=== PATIENT | male | born 1980 | race Two or more races ===

== ENCOUNTER 2018-07-02 11:07 | Inpatient (IN) | payer OTHER ==
[2018-07-02] MEDS ORDERED: ALBUTEROL SO4 2.5/IPRATROPIUM 0.5 INH SOL 3 ML VIAL.NEB. NEB ONE ×3 (11:33→12:07)
[2018-07-02] MEDS ORDERED: methylPREDNISolone NA SUCC 125 MG/2 ML VIAL IVPB ONE (11:35)
[2018-07-02] MEDS ORDERED: MAGNESIUM SULF 50% (8.12 MEQ/2 ML-1 GM VIAL) IVPB ONE (11:35)
[2018-07-02] MEDS ORDERED: AZITHROMYCIN IVPB 500 MG in DEXTROSE 5%-WATER - 250 ML IVPB ONE (11:41)
[2018-07-02] MEDS ORDERED: CEFTRIAXONE 1 GM in DEXTROSE 5%-WATER - 50 ML IVPB ONE (11:42)
--- NOTE | 2018-07-02 11:42 | PDOC ---
History of Present Illness - General Chief Complaint: Shortness of Breath Stated Complaint: Shortness of Breath Time Seen by Provider: 07/02/18 11:29 History Source: Patient Exam Limitations: No Limitations - History of Present Illness Initial Comments: 07/02/18 11:29 Mr Vazquez is a 37 yo M with a h/o HTN who presents from his PMDs office due to Progressively worsening shortness of breath. Patient apparently began to have upper respiratory symptoms approximately 2 weeks ago. He was seen by his primary care physician on June 28. At that time an x-ray was performed and was reportedly negative. Patient was started on an antibiotic as well as prednisone. Patient reports compliance with both however has noted worsening shortness of breath. He was seen by his primary care physician today who referred him to the emergency department. Patient denies fevers or chills. Patient denies chest pain. Patient denies recent travel, lower extremity edema. Patient denies prior history of asthma. Patient previously used tobacco but discontinued its use approximately one year ago. MH: Hypertension PSH: Denies Medications: ALLERGIES: NKDA Social: Denies tobacco use, denies drug use, denies alcohol use ROS: GENERAL/CONSTITUTIONAL: No: fever, chills, weakness, loss of appetite. HEAD, EYES, EARS, NOSE AND THROAT: No: change in vision, ear pain, discharge, sore throat, throat swelling. CARDIOVASCULAR: No: chest pain, lightheadedness, palpitations, syncope RESPIRATORY: YES: cough, shortness of breath GASTROINTESTINAL: No: nausea, vomiting, diarrhea, abdominal cramping, rectal bleeding, constipation. GENITOURINARY: No: dysuria, hematuria, frequency, urgency, flank pain. MUSCULOSKELETAL: No: back pain, neck pain, joint pain, muscle swelling or pain SKIN AND BREASTS: No: lesions, pallor, rash or easy bruising. NEUROLOGIC: No: headache, vertigo, paresthesias, weakness ENDOCRINE: No: unexplained weight gain or loss HEMATOLOGIC/LYMPHATIC: No: anemia, easy bleeding, swelling nodes. PE: GENERAL: The patient is in no acute distress. HEAD: Normal with no signs of trauma. EYES: PERRLA, EOMI, sclera anicteric, conjunctiva clear. ENT: Ears normal, nares patent, oropharynx clear without exudates. Moist mucous membranes. NECK: Normal range of motion, supple without lymphadenopathy, JVD, or masses. LUNGS: Pt is tachypneic, using accessory muscles, expiratory rhonchi, crackles at bases, no wheezing HEART: Tachycardiac regular, no murmur ABDOMEN: Soft, nontender, normoactive bowel sounds. No guarding, no rebound. No masses palpable. EXTREMITIES: Normal range of motion, no edema. No clubbing or cyanosis. No erythema, or tenderness. NEUROLOGICAL: Cranial nerves II through XII grossly intact. Normal speech. No focal neurological deficits. MUSCULOSKELETAL: Back non-tender to palpation, no CVA tenderness SKIN: Warm, Dry, normal turgor, no rashes or lesions noted. Past History - Past Medical History Allergies/Adverse Reactions: Allergies Allergy/AdvReac Type Severity Reaction Status Date / Time No Known Allergies Allergy Verified 07/02/18 11:29 Home Medications: Ambulatory Orders Amlodipine Besylate [Norvasc -] 5 mg PO DAILY 07/02/18 ED Treatment Course - LABORATORY CBC & Chemistry Diagram: 07/07/18 06:00 07/07/18 06:00 Medical Decision Making - Critical Care Time Total Critical Care Time (minutes): 90 Critical Care Statement: The care of this patient involved high complexity decision making to prevent further life threatening deterioration of the patient 's condition and/or to evaluate & treat vital organ system(s) failure or risk of failure. - Medical Decision Making 07/02/18 11:59 CXR - increased marking, no consoloditation see, no effusionnml cardiomediastinal silhouette EKG - Twelve-lead EKG was performed and reviewed by me. There is normal sinus rhythm with a tachycardiac rate of 101 bpm. The axis is normal. The intervals are normal - pr:146ms, QRS:72ms, QTc: 376ms. There are no ST or T wave abnormalities. 07/02/18 12:03 Pt given Combivent x 2 Sat 89% Will give albuterol Still awaiting respiratory for BiPAP 07/02/18 12:23 Laboratory Tests 07/02/18 11:52 WBC 19.2 H Hgb 15.3 Hct 43.1 Plt Count 357 07/02/18 12:29 BiPAP initiated 07/02/18 12:39 07/02/18 12:40 Laboratory Tests 07/02/18 12:05 Influenza A (Rapid) Negative Influenza B (Rapid) Negative 07/02/18 12:41 Laboratory Tests 07/02/18 11:58 Lactic Acid 1.3 07/02/18 12:51 Laboratory Tests 07/02/18 07/02/18 11:15 12:40 ABG pH 7.43 ABG pCO2 at Pt Temp 38.6 ABG pO2 at Pt Temp 52.9 L BUN 15 Creatinine 1.2 07/02/18 14:[address] Placed on Bipap CT demonstrates LLL pneumonia 07/02/18 14:49 CTA read as neg for PE, LLL atalectasis Ceftriaxone and Azithromycin ordered Admitted to hospitalist Consult to Dr Wiggins per Dr. Muniz 07/02/18 15:[address] Love covering ICU Would like to send patient to Tele Clinical Impression: Pneumonia, initial presentation Bronchospasm, initial presentation Respiratory Distress, initial presentation *DC/Admit/Observation/Transfer Diagnosis at time of Disposition: Reactive airway disease Pneumonia Qualifiers: Pneumonia type: due to unspecified organism Laterality: left Lung location: lower lobe of lung Qualified Code(s): J18.1 - Lobar pneumonia, unspecified organism - Discharge Dispostion Condition at time of disposition: Stable Decision to Admit order: Yes - Referrals - Patient Instructions - Post Discharge Activity
[2018-07-02] MEDS ORDERED: methylPREDNISolone NA SUCC 125 MG/2 ML VIAL ONE (11:53)
[2018-07-02] MEDS ORDERED: MAGNESIUM 1GM/D5W - 2 GM/200 ML IVPB IVPB ONE (11:54)
[2018-07-02] MEDS ORDERED: ALBUTEROL SO4 0.083% IH SOL 2.5 MG/3 ML VIAL.NEB. NEB ONE ×2 (12:03→12:07)
[2018-07-02 12:09] LABS: BASO % 0.7 % (0-2.0); EOS % 0.7 % (0-4.5); HEMATOCRIT 43.1 % (35.4-49); HEMOGLOBIN 15.3 GM/dL (11.7-16.9); LYMPH % 14.9 % (8-40); MCH 30.4 pg (25.7-33.7); MCHC 35.6 g/dl (32.0-35.9); MEAN CELL VOLUME 85.6 fl (80-96); MEAN PLT VOLUME 10.2 fl (7.5-11.1); MONO % 7.7 % (3.8-10.2); PLATELET COUNT 357 K/MM3 (134-434); RBC 5.03 M/mm3 (4.00-5.60); RDW 13.4 % (11.9-15.9); WHITE BLOOD COUNT 19.2 K/mm3 (4.0-10.0)
[2018-07-02] MEDS ORDERED: CEFTRIAXONE 1 GM/50 ML BAG ONE (12:17)
[2018-07-02 12:43] LABS: ARTERIAL BLD GAS O2 SATURATION 85.3 % (90-98.9); ARTERIAL BLOOD GAS BASE EXCESS 1.3 meq/l (-2-2); ARTERIAL BLOOD GAS PCO2 38.6 mmHg (35-45); ARTERIAL BLOOD GAS PO2 52.9 mmHg (80-100); ARTERIAL BLOOD GAS pH 7.43 (7.35-7.45)
[2018-07-02 12:45] LABS: ALBUMIN 3.1 g/dl (3.4-5.0); ALK PHOS 33 U/L (45-117); ANION GAP 10 MMOL/L (8-16); BILIRUBIN,TOTAL 0.6 mg/dL (0.2-1); BLOOD UREA NITROGEN 15 mg/dL (7-18); CALCIUM 8.4 mg/dL (8.5-10.1); CHLORIDE 101 mmol/L (98-107); CO2 29 mmol/L (21-32); CREATININE 1.2 mg/dL (0.55-1.3); GLUCOSE,RANDOM 82 mg/dL (74-106); POTASSIUM 3.9 mmol/L (3.5-5.1); SGOT/AST 31 U/L (15-37); SGPT/ALT 64 U/L (13-61); SODIUM 140 mmol/L (136-145); TOT PROT 7.7 g/dl (6.4-8.2)
[2018-07-02] MEDS ORDERED: AZITHROMYCIN IVPB 500 MG/250 ML BAG IVPB ONE (12:57)
[2018-07-02 13:17] LABS: N-TERMINAL BNP 46.1 pg/ml (5-125)
[2018-07-02 13:48] LABS: INR 1.23 (0.83-1.09); PROTHROMBIN TIME (PATIENT) 14.5 SEC (9.7-13.0)
[2018-07-02] MEDS ORDERED: ALBUTEROL SO4 0.083% IH SOL 2.5 MG/3 ML VIAL.NEB. NEB PRN (14:53)
--- NOTE | 2018-07-02 14:56 | CONSULT ---
Consultation: REQUESTING PROVIDER: CONSULT REQUEST: We have been asked to medically evaluate this patient for ( Respiratory failure). Pulm - critical care HISTORY OF PRESENT ILLNESS: 37 y/o male with PMH of HTN was sent in by his PCP because of increase in shortness of breath and cough. Patient states that he started having productive cough 2 week ago, sputum was yellow in color, took antibiotic Augmentin for 2 week, his cough got better and color of sputum changed from yellow to white. Also reports Shortness of breath which also started about 2week ago with cough and is getting worse, use to get shortness of breath even while walking in home and also unable to eat because of shortness of breath. 4 days ago pt again saw his doctor and was started on prednisone and inhaler but breathing lept on getting worse. Today was sent in by his pcp. Reports sick contact from his colleague 3 week ago. Also reports lightheadedness if he tries to walk. Denies fever and chills, runny nose, chest pain, palpitations, sneezing. Denies swelling in legs, orthopnea and paroxysmal dyspnea. Denies recent travel. NO h/o asthma and copd. No h/o exposure to fumes, dust and gases. Smoked for 6 years ( 3-4 cig a day). Didn't get flu shot In ER pt has minimal air entry with RR of 52, started on BIPAP with fi02 of 100 , got solumedrol, duoneb, azithromycin, ceftriaxone and magnesium. ABG done in ER on neb mask. pt reports feeling little better since he came to hospital. ABG Results ABG pH 7.43 (7.35-7.45) 07/02/18 12:40 ABG pCO2 at Pt Temp 38.6 mmHg (35-45) 07/02/18 12:40 ABG pO2 at Pt Temp 52.9 mmHg (80-100) L 07/02/18 12:40 ABG HCO3 25.0 meq/L (22-26) 07/02/18 12:40 ABG O2 Sat (Measured) 85.3 % (90-98.9) L 07/02/18 12:40 ABG O2 Content 18.2 % vol (15-22) 07/02/18 12:40 ABG Base Excess 1.3 meq/l (-2-2) 07/02/18 12:40 CTA chest -- shows atelectasis with interstial lung ds. NO PE REVIEW OF SYSTEMS: CONSTITUTIONAL: Absent: fever, chills, diaphoresis, generalized weakness, malaise, loss of appetite, weight change HEENT: Absent: rhinorrhea, nasal congestion, throat pain, throat swelling, difficulty swallowing, CARDIOVASCULAR: Absent: chest pain, syncope, palpitations, irregular heart rate, lightheadedness , peripheral edema RESPIRATORY: Absent: cough, shortness of breath, dyspnea with exertion, orthopnea, wheezing, stridor, hemoptysis GASTROINTESTINAL: Absent: abdominal pain, abdominal distension, nausea, vomiting, diarrhea, constipation, melena, hematochezia GENITOURINARY: Absent: dysuria, frequency, urgency, hesitancy, hematuria, flank pain, genital pain MUSCULOSKELETAL: Absent: myalgia, arthralgia, joint swelling, back pain, neck pain SKIN: Absent: rash, itching, pallor NEUROLOGIC: Absent: headache, focal weakness or paresthesias, dizziness PSYCHIATRIC: Absent: anxiety, depression, PHYSICAL EXAMINATION Vital Signs - 24 hr 07/02/18 07/02/18 07/02/18 11:29 12:10 12:25 Temperature 98.6 F Pulse Rate 108 H Pulse Rate [ Apical] Respiratory 52 H Rate Blood Pressure 126/90 O2 Sat by Pulse 84 L 89 L 98 Oximetry (%) 07/02/18 12:31 Temperature Pulse Rate Pulse Rate [ 120 H Apical] Respiratory 40 H Rate Blood Pressure O2 Sat by Pulse 96 Oximetry (%) GENERAL: Awake, alert, and fully oriented, in respiratory distress, no nasal flaring, no intercostal retraction, no sternocledomastoid use. speaking in full sentences RR -26. HEAD: Normal with no signs of trauma. EYES: Pupils equal, round and reactive to light, EARS, NOSE, THROAT:nares patent, oropharynx clear without exudates. dry mucous membranes. NECK: Normal range of motion, supple without lymphadenopathy, JVD, LUNGS: minimal air entry b/l, no wheezing, no rales. HEART: Regular rate and rhythm, normal S1 and S2 without murmur, sinus tachycardia ABDOMEN: Soft, nontender, not distended, normoactive bowel sounds, no guarding, no rebound, no masses. UPPER EXTREMITIES: 2+ pulses, warm, well-perfused. No cyanosis. LOWER EXTREMITIES: warm, well-perfused. No calf tenderness. No peripheral edema. SKIN: Warm, dry, Laboratory Results - last 24 hr 07/02/18 07/02/18 07/02/18 11:15 11:15 11:52 WBC 19.2 H RBC 5.03 Hgb 15.3 Hct 43.1 MCV 85.6 MCH 30.4 MCHC 35.6 RDW 13.4 Plt Count 357 MPV 10.2 Absolute Neuts (auto) 14.7 H Neutrophils % 76.0 Lymphocytes % 14.9 Monocytes % 7.7 Eosinophils % 0.7 Basophils % 0.7 Nucleated RBC % 0 PT with INR Cancelled INR Cancelled PTT (Actin FS) Cancelled Puncture Site ABG pH ABG pCO2 at Pt Temp ABG pO2 at Pt Temp ABG HCO3 ABG O2 Sat (Measured) ABG O2 Content ABG Base Excess García Test Oxygen Flow Rate Sodium 140 Potassium 3.9 Chloride 101 Carbon Dioxide 29 Anion Gap 10 BUN 15 Creatinine 1.2 Creat Clearance w eGFR > 60 Random Glucose 82 Lactic Acid Calcium 8.4 L Total Bilirubin 0.6 AST 31 ALT 64 H Alkaline Phosphatase 33 L Creatine Kinase 514 H Creatine Kinase Index 0.5 CK-MB (CK-2) 2.8 Troponin I < 0.02 B-Natriuretic Peptide 46.1 Total Protein 7.7 Albumin 3.1 L Influenza A (Rapid) Influenza B (Rapid) 07/02/18 07/02/18 07/02/18 11:58 12:05 12:40 WBC RBC Hgb Hct MCV MCH MCHC RDW Plt Count MPV Absolute Neuts (auto) Neutrophils % Lymphocytes % Monocytes % Eosinophils % Basophils % Nucleated RBC % PT with INR INR PTT (Actin FS) Puncture Site No Result Required. ABG pH 7.43 ABG pCO2 at Pt Temp 38.6 ABG pO2 at Pt Temp 52.9 L ABG HCO3 25.0 ABG O2 Sat (Measured) 85.3 L ABG O2 Content 18.2 ABG Base Excess 1.3 García Test No Result Required. Oxygen Flow Rate No Result Required. Sodium Potassium Chloride Carbon Dioxide Anion Gap BUN Creatinine Creat Clearance w eGFR Random Glucose Lactic Acid 1.3 Calcium Total Bilirubin AST ALT Alkaline Phosphatase Creatine Kinase Creatine Kinase Index CK-MB (CK-2) Troponin I B-Natriuretic Peptide Total Protein Albumin Influenza A (Rapid) Negative Influenza B (Rapid) Negative Active Medications Generic Name Dose Route Start Last Admin Trade Name Freq PRN Reason Stop Dose Admin Albuterol Sulfate 1 amp 07/02/18 14:53 Ventolin 0.083% Nebulizer Soln - NEB Q4H PRN SHORT OF BREATH/WHEEZING Albuterol/Ipratropium 1 amp 07/02/18 16:00 Duoneb - NEB RQID [facility] Chlorhexidine Gluconate 1 applic 07/02/18 22:00 Hibiclens For Decolonization - TP HS [facility] Heparin Sodium (Porcine) 5,000 unit 07/02/18 22:00 Heparin - SQ TID [facility] Methylprednisolone Sodium Succinate 60 mg 07/02/18 15:00 Solu-Medrol - IVPB Q6H [facility] Mupirocin 1 applic 07/02/18 22:00 Bactroban Ointment (For Decolonization) - NS 07/07/18 21:59 BID [facility] ASSESSMENT/PLAN: Acute hypoxic respiratory failure likely from acute bronchospasm with cough with interstial lung ds. Continue with IV steroid continue with nebulizers standing and prn keep headend elevated keep spo2> 90 BIPAP for respiratory support. completed a course antibiotic as an out- patient. Now clear sputum, no fever. CTA: shows atelectasis and interstial lung ds. NO PE antibiotic as per primary team: got azithro and ceftriaxone in ed montelucast 10mg hs. influenza test negative get urine for legionella and strep ekg sinus tachy, no st changes. Trop i negative. Leucocytosis likely from steroid use. less likely from infection. pt is afebrile no rales on auscultation. obesity. need counseling for diet and exercise ? sleep apnea. work up can be done outpatient or inpatient prior to discharge. Hypertension. monitor BP continue home meds. DVT pro: heparin sq Gi pro zantac daily can be monitored on tele for now. Dispo: We will continue to follow the patient. Thank you for this consultative opportunity. Visit type - Emergency Visit Emergency Visit: Yes ED Registration Date: 07/02/18 Care time: The patient presented to the Emergency Department on the above date and was hospitalized for further evaluation of their emergent condition. - New Patient This patient is new to me today: Yes Date on this admission: 07/06/18 - Critical Care Critical Care patient: No Total Critical Care Time (in minutes): 45 Critical Care Statement: The care of this patient involved high complexity decision making to prevent further life threatening deterioration of the patient 's condition and/or to evaluate & treat vital organ system(s) failure or risk of failure.
[2018-07-02] MEDS ORDERED: methylPREDNISolone NA SUCC 40 MG/1 ML VIAL IVPB SCH (15:00)
[2018-07-02] MEDS ORDERED: methylPREDNISolone NA SUCC 125 MG/2 ML VIAL IVPB SCH (15:00)
--- NOTE | 2018-07-02 16:06 | PN ---
Progress Note (short form) - Note Progress Note: ID Consult dictated Community acquired v. atypical LLL pneumonia Await c/s Empiric zithromax/ ceftriaxone Pt declines HIV testing
[2018-07-02] MEDS: ALBUTEROL SO4 2.5/IPRATROPIUM 0.5 INH SOL 3 ML VIAL.NEB. NEB SCH ×2 (16:40→21:05)
[2018-07-02] MEDS ORDERED: FLU VACCINE QUAD 60 MCG/0.5 ML (MDV 18-19) IM ONE (18:00)
[2018-07-02 18:22] LABS: URINE APPEARANCE CLEAR; URINE BILIRUBIN NEGATIVE (<2.0 mg/dL); URINE COLOR YELLOW; URINE GLUCOSE (UA) NEGATIVE (NEGATIVE); URINE KETONE NEGATIVE (NEGATIVE); URINE LEUK ESTERASE NEGATIVE (NEGATIVE); URINE NITRITE NEGATIVE (NEGATIVE); URINE PROTEIN 1+ (NEGATIVE); URINE UROBILINOGEN NEGATIVE mg/dL (0.2-1.0)
[2018-07-02 18:54] LABS: URINE BACTERIA RARE /hpf (NONE SEEN); URINE MUCUS FEW
[2018-07-02] MEDS ORDERED: PT OWN MED DRAWER 7, Y5N ONE (20:52)
[2018-07-02] MEDS: MONTELUKAST NA 10 MG TABLET PO SCH (21:29)
[2018-07-02] MEDS: RANITIDINE HCL 150 MG TABLET (FP) PO SCH (21:29)
[2018-07-02] MEDS: HEPARIN NA (PORCINE) 5,000 UNITS/ML 1ML VIAL SQ SCH (21:29)
[2018-07-02] MEDS ORDERED: CHLORHEXIDINE GLUCONATE 4% CLEANSER FOR DECOLONIZATION TP SCH (22:00)
[2018-07-03] MEDS: methylPREDNISolone NA SUCC 40 MG/1 ML VIAL IVPB SCH ×4 (05:18→21:15)
[2018-07-03] MEDS: HEPARIN NA (PORCINE) 5,000 UNITS/ML 1ML VIAL SQ SCH ×3 (05:18→21:15)
[2018-07-03 07:14] LABS: BASO % 0.2 % (0-2.0); EOS % 0.1 % (0-4.5); HEMATOCRIT 42.5 % (35.4-49); HEMOGLOBIN 13.9 GM/dL (11.7-16.9); LYMPH % 11.3 % (8-40); MCH 28.6 pg (25.7-33.7); MCHC 32.6 g/dl (32.0-35.9); MEAN CELL VOLUME 87.6 fl (80-96); MEAN PLT VOLUME 9.9 fl (7.5-11.1); MONO % 6.7 % (3.8-10.2); NEUT % 81.7 % (42.8-82.8); PLATELET COUNT 337 K/MM3 (134-434); RBC 4.85 M/mm3 (4.00-5.60); RDW 13.3 % (11.9-15.9); WHITE BLOOD COUNT 15.4 K/mm3 (4.0-10.0)
[2018-07-03 07:45] LABS: ALBUMIN 2.6 g/dl (3.4-5.0); ALK PHOS 31 U/L (45-117); ANION GAP 4 MMOL/L (8-16); BILIRUBIN,TOTAL 0.6 mg/dL (0.2-1); BLOOD UREA NITROGEN 19 mg/dL (7-18); CALCIUM 8.3 mg/dL (8.5-10.1); CHLORIDE 105 mmol/L (98-107); CO2 31 mmol/L (21-32); CREATININE 0.9 mg/dL (0.55-1.3); GLUCOSE,RANDOM 106 mg/dL (74-106); MAGNESIUM 2.9 mg/dL (1.8-2.4); PHOSPHOROUS 5.9 mg/dL (2.5-4.9); POTASSIUM 4.6 mmol/L (3.5-5.1); SGOT/AST 23 U/L (15-37); SGPT/ALT 57 U/L (13-61); SODIUM 140 mmol/L (136-145); TOT PROT 6.9 g/dl (6.4-8.2)
[2018-07-03] MEDS: ALBUTEROL SO4 2.5/IPRATROPIUM 0.5 INH SOL 3 ML VIAL.NEB. NEB SCH ×4 (07:45→20:31)
[2018-07-03] MEDS ORDERED: DEXTROSE 5%-WATER 100 ML IVPB ONE (08:50)
[2018-07-03] MEDS: RANITIDINE HCL 150 MG TABLET (FP) PO SCH (09:19)
[2018-07-03] MEDS: CEFTRIAXONE 2 GM in DEXTROSE 5%-WATER 100 ML IVPB SCH (09:59)
[2018-07-03] MEDS ORDERED: AZITHROMYCIN IVPB 500 MG in DEXTROSE 5%-WATER - 250 ML IVPB SCH (10:00)
--- NOTE | 2018-07-03 11:15 | PN ---
Progress Note, Physician Chief Complaint: Pt seen and examined SOB present pt is on rebreather vitals stable, afebril Blood cul negative - Current Medication List Current Medications: Active Medications Albuterol Sulfate (Ventolin 0.083% Nebulizer Soln -) 1 amp NEB Q4H PRN PRN Reason: SHORT OF BREATH/WHEEZING Albuterol/Ipratropium (Duoneb -) 1 amp NEB RQID [facility] [place] Last Admin: 07/03/18 07:45 Dose: 1 amp Amlodipine Besylate (Norvasc -) 5 mg PO DAILY [facility] [place] Heparin Sodium (Porcine) (Heparin -) 5,000 unit SQ TID [facility] Last Admin: 07/03/18 05:18 Dose: 5,000 unit Ceftriaxone Sodium 2 gm/ (Dextrose) 100 mls @ 200 mls/hr IVPB DAILY [facility] [place]; Protocol Last Admin: 07/03/18 09:59 Dose: 200 mls/hr Azithromycin 500 mg/ Dextrose 250 mls @ 250 mls/hr IVPB DAILY [facility] [place] Methylprednisolone Sodium Succinate (Solu-Medrol -) 60 mg IVPB Q6H-IV [facility] Last Admin: 07/03/18 09:19 Dose: 60 mg Montelukast Sodium (Singulair -) 10 mg PO HS [facility] [place] Last Admin: 07/02/18 21:29 Dose: 10 mg Ranitidine HCl (Zantac -) 150 mg PO DAILY [facility] [place] Last Admin: 07/03/18 09:19 Dose: 150 mg - Objective Vital Signs: Vital Signs Temperature 97.9 F 07/03/18 09:00 Pulse Rate 97 H 07/03/18 09:00 Respiratory Rate 22 H 07/03/18 09:00 Blood Pressure 134/68 07/03/18 09:00 O2 Sat by Pulse Oximetry (%) 98 07/02/18 21:36 Constitutional: Yes: No Distress Eyes: Yes: Conjunctiva Clear HENT: Yes: Atraumatic, Normocephalic Neck: Yes: Supple, Trachea Midline Cardiovascular: Yes: Regular Rate and Rhythm Respiratory: Yes: Regular, Diminished, Other (lung base) Gastrointestinal: Yes: Normal Bowel Sounds, Soft Musculoskeletal: Yes: WNL Extremities: Yes: WNL Edema: No Peripheral Pulses WNL: Yes Neurological: Yes: WNL, Alert ...Motor Strength: WNL Psychiatric: Yes: WNL, Alert, Oriented Labs: CBC, BMP 07/03/18 06:40 07/03/18 06:40 INR, PTT INR 1.23 (0.83-1.09) H 07/02/18 12:39 - ....Imaging X-ray: Report Reviewed Cat Scan: Report Reviewed Assessment/Plan Acute hypoxic resp failur likely from acute bronchospasm with? interstitial lung disease Atypical LLL pneumonia Leucocytosis ?steroid induced HTN Obesity Sleep apnoea PLAN Continue IV steroid Bronchodialators Continue antibiotics PULmonary Consult Monitor Labs
[2018-07-03] MEDS: amLODIPine BESYLATE 5 MG TABLET (FP) PO SCH (11:49)
--- NOTE | 2018-07-03 11:54 | HP ---
DATE OF ADMISSION: DATE OF DICTATION: 07/03/2018 HISTORY OF PRESENT ILLNESS: Patient is a 37-year-old male with a past medical history of hypertension, was sent by the PCP because of the increase in shortness of breath and cough. Patient said the cough started 2 weeks ago and sputum was yellow in color. Patient took antibiotics, Augmentin, for 2 weeks. His cough got better and color of sputum changed from yellow to white but also complains of shortness of breath which started about 2 weeks ago with the cough and is getting worse. Four days ago patient again was seen by the primary and was started on prednisone and bronchodilator inhaler, but breathing got worse. Because of the worsening of the patient presented to the emergency room for further evaluation. Patient had a sick contact 3 weeks ago. Also reports lightheadedness when he walks fast. Denies fever, chills, runny nose, chest pain, palpitations, sneezing. No edema. No orthopnea. No paroxysmal dyspnea. No history of asthma, COPD. No history of exposure to fumes, dust or grass. Smoked 6 years. Patient did not get the flu shot. PAST MEDICAL HISTORY: Significant for the hypertension. Patient is on amlodipine 5 mg daily. Lives alone. . SURGICAL HISTORY: Nothing significant. ALLERGIES: No known drug allergy. REVIEW OF SYSTEMS: Constitutional: Absent fever. No diaphoresis. Patient complains of loss of appetite and shortness of breath. Head and Neck: Throat pain present. Rhinorrhea present. Cardiovascular: No chest pain. No palpitation. No peripheral edema. Respiratory: Patient complains of cough, shortness of breath and dyspnea on exertion. Gastrointestinal: Nothing significant. Genitourinary: Nothing significant. Musculoskeletal: No joint swelling. No back pain. Neurologic: No headache. No focal weakness. Psychiatric: No history of depression or anxiety. MEDICATION: Patient is on amlodipine. PHYSICAL EXAMINATION: Vital Signs: On examination in the emergency room temperature 98.6, pulse rate of 108, respirations 52, blood pressure 126/90, saturation 84% on room air. GENERAL: On examination of the patient in the emergency room patient was awake, alert and fully oriented, respiratory distress present, nasal flaring, speaking in full sentence. Head and Neck: Normal. No JVD. Eyes: Pupils equally react to light and accommodation. ENT: Nose, throat normal. Lungs: Minimal air entry bilaterally. No wheezing. No rales. Heart: First and 2nd sound normal. No murmur. Sinus tachycardia present. Abdomen: Soft and nontender. Nondistended. Bowel sounds present. Extremities: No edema. Pedal pulses present. LABORATORIES: WBC 19.2, hemoglobin 16.3, hematocrit 33.1, platelet 357. PT of 14.5. INR 1.23. Blood gas: PH of 7.43, PCO2 38.6, PO2 of 52.9, bicarbonate 25, O2 saturation 85.4. Chemistry: Blood sodium 140, potassium 3.9, chloride 101, carbon dioxide 29, BUN 15, creatinine 1.2, glucose 82, lactic acid 1.3, calcium 8.4, AST 31, ALT 54, alkaline phosphatase 33. CK 514. Troponin negative. BNP 46.1. Albumin 3.1. Urine protein 1+. Influenza A and B negative. Blood culture pending. Chest x-ray shows no acute process seen. Prominent carlin but clear lung field. Bones and soft tissues are normal. CT of the chest done shows no evidence of pulmonary embolism. Areas of atelectasis and interstitial lung disease most remarkable within the left lower lobe. The changes may be chronic in nature. EKG: Normal, sinus tachycardia, no ST-T wave changes. Patient was given Zithromax, ceftriaxone in the ER and Solu-Medrol IV, magnesium sulfate 2 g. Albuterol nebulizing treatment given. Duo-Neb treatment given. Subcutaneous heparin given. Patient was started on a BiPAP machine with FIO2 of 100 and the saturation improved. Patient was consulted by the ICU physician and as per the ICU physician patient can admit in telemetry . ADMITTING DIAGNOSES: 1. Acute hypoxic respiratory failure likely from acute bronchospasm with a cough with interstitial lung disease. 2. Atypical left lower lobe pneumonia. 3. Hypertension. 4. Obesity. 5. Sleep apnea. PLAN: BiPAP machine. Pulmonary consult. Continue amlodipine, albuterol nebulizing treatments. Continue Zithromax and IV ceftriaxone, IV Solu-Medrol. DVT prophylaxis. Low-sodium diet. Patient stable on the floor. Elvira [id number]
[2018-07-03] MEDS ORDERED: AZITHROMYCIN IVPB 500 MG/250 ML BAG IVPB SCH (12:00)
--- NOTE | 2018-07-03 12:05 | EKG ---
Test Reason : Blood Pressure : / mmHG Vent. Rate : 101 BPM Atrial Rate : 101 BPM P-R Int : 146 ms QRS Dur : 072 ms QT Int : 290 ms P-R-T Axes : 076 008 056 degrees QTc Int : 376 ms POOR DATA QUALITY, INTERPRETATION MAY BE ADVERSELY AFFECTED SINUS TACHYCARDIA OTHERWISE NORMAL ECG NO PREVIOUS ECGS AVAILABLE Confirmed by BARBER NICE MD ([id number]) on 07/03/2018 12:05:37 PM Referred By: Confirmed By:BARBER NICE MD
--- NOTE | 2018-07-03 13:45 | PN ---
Progress Note, Physician History of Present Illness: Tachypneic at rest on NRB mask + cough whitish sputum No hemoptysis No c/o chest pain Afebrile WBC improved Sputum c/s and legionella ag not yet collected - Current Medication List Current Medications: Active Medications Albuterol Sulfate (Ventolin 0.083% Nebulizer Soln -) 1 amp NEB Q4H PRN PRN Reason: SHORT OF BREATH/WHEEZING Albuterol/Ipratropium (Duoneb -) 1 amp NEB RQID [facility] Last Admin: 07/03/18 11:39 Dose: 1 amp Amlodipine Besylate (Norvasc -) 5 mg PO DAILY [facility] Last Admin: 07/03/18 11:49 Dose: 5 mg Heparin Sodium (Porcine) (Heparin -) 5,000 unit SQ TID [facility] Last Admin: 07/03/18 13:38 Dose: 5,000 unit Ceftriaxone Sodium 2 gm/ (Dextrose) 100 mls @ 200 mls/hr IVPB DAILY [facility]; Protocol Last Admin: 07/03/18 09:59 Dose: 200 mls/hr Azithromycin (Zithromax 500mg Ivpb (Pre-Docked)) 500 mg in 250 mls @ 250 mls/ hr IVPB DAILY [facility] Last Admin: 07/03/18 13:38 Dose: 250 mls/hr Methylprednisolone Sodium Succinate (Solu-Medrol -) 60 mg IVPB Q6H-IV [facility] Last Admin: 07/03/18 09:19 Dose: 60 mg Montelukast Sodium (Singulair -) 10 mg PO HS [facility] Last Admin: 07/02/18 21:29 Dose: 10 mg Ranitidine HCl (Zantac -) 150 mg PO DAILY [facility] Last Admin: 07/03/18 09:19 Dose: 150 mg - Objective Vital Signs: Vital Signs Temperature 97.2 F L 07/03/18 13:18 Pulse Rate 93 H 07/03/18 13:18 Respiratory Rate 20 07/03/18 13:18 Blood Pressure 122/62 07/03/18 13:18 O2 Sat by Pulse Oximetry (%) 96 07/03/18 11:38 Constitutional: Yes: Mild Distress Cardiovascular: Yes: Regular Rate and Rhythm, S1, S2 Respiratory: Yes: Other (+ crepitations L base) Gastrointestinal: Yes: Normal Bowel Sounds, Soft, Abdomen, Obese. No: Tenderness Edema: No Labs: CBC, BMP 07/03/18 06:40 07/03/18 06:40 INR, PTT INR 1.23 (0.83-1.09) H 07/02/18 12:39 Assessment/Plan Community acquired V. atypical LLL pneumonia Await c/s, legionella/ pneumococcal ag Continue empiric ceftriaxone Will substitute levaquin for zithromax for legionella coverage
--- NOTE | 2018-07-03 14:18 | CONS ---
DATE OF CONSULTATION: 07/02/2018 HISTORY OF PRESENT ILLNESS: The patient was seen in the emergency room. He is a 37-year-old male with a history of hypertension and obesity who was evaluated for pneumonia. The patient reports becoming increasingly short of breath over the past 2 weeks. He had been seen as an outpatient in his primary care physician's office and was prescribed amoxicillin and prednisone. A chest x-ray was reportedly negative on June 28, 2018. Despite the antibiotic therapy and prednisone he got progressively more short of breath. He presented to the emergency room where the patient was in mild to moderate respiratory distress using accessory muscles. He was found to have expiratory rhonchi and crepitations at the bases. He was placed on BiPAP. Patient was treated with inhaled bronchodilators and intravenous corticosteroids. At the present time he is dyspneic on BiPAP. He is able to speak in complete sentences. The patient states his respiratory status has worsened over the past 2 weeks. He otherwise is healthy. He denies any ill contacts. The patient works in an office doing computer work. Denies any ill family members. He is a former smoker. Denies risk factors for HIV, although his status is not known. He is originally from [facility]. Has been living in the [facility] for the past 9 years. He traveled to [place] in December of this year. No recent travel. He did not receive the influenza vaccine. PAST MEDICAL HISTORY: Positive for hypertension. SOCIAL HISTORY: As per HPI. SYSTEMS REVIEW: Neurologic: No loss of consciousness, seizure activity, focal weakness. Cardiac: Negative for chest pain or palpitations. Respiratory: As per HPI. Gastrointestinal: Negative vomiting or diarrhea. Genitourinary: Negative for urinary tract infection. LABORATORY DATA: White count 19.2, 76 neutrophils, 14 lymphocytes, 7 monocytes, hematocrit 43.1, platelet count 357. BUN 15, creatinine 1.2, total bilirubin 0.6, alkaline phosphatase 33, AST 31, ALT 64. CAT scan of the chest shows atelectasis/infiltrate at the left base. PHYSICAL EXAMINATION:General: He is awake. He is obese. He is dyspneic at rest on BiPAP. Vital Signs: Temperature 98.6, blood pressure 123/61, pulse 84, regular, respirations 24 per minute. HEENT: Sclerae are anicteric. Cardiac: Heart sounds S1, S2. Lungs: Crepitations at the left base. Abdomen: Soft, obese, nontender. Extremities: Negative for edema. Negative Homans sign. IMPRESSION: Community-acquired versus atypical left lower lobe pneumonia. RECOMMENDATIONS: Await cultures. Obtain urine Legionella and Pneumococcal antigens. Empiric antibiotic coverage with Zithromax and ceftriaxone. Patient declines HIV testing. LISA ROSE M.D. [id number]
--- NOTE | 2018-07-03 15:00 | PN ---
Teaching Attending Note Name of Resident: Koko Love ATTENDING PHYSICIAN STATEMENT I saw and evaluated the patient. I reviewed the resident's note and discussed the case with the resident. I agree with the resident's findings and plan as documented. SUBJECTIVE: Pt seen and examined on telemetry. Remains on BiPAP, short of breath. No fevers recorded. Some occasional wheezing. OBJECTIVE: Vital Signs Period Temp Pulse Resp BP Sys/Sage Pulse Ox Last 24 Hr 97.2 F-98.7 F 70-97 20-26 106-134/61-74 91-100 Intake & Output 06/30/18 07/01/18 07/02/18 07/03/18 23:59 23:59 23:59 23:59 Intake Total 100 440 Output Total 600 Balance -500 440 Weight 113.852 kg 114.124 kg Gen: mildly tachypneic on biPAP Heart: RRR Lung: scattered rhonchi, wheezes Abd: soft, nontender Ext: no edema CBC, BMP 07/03/18 06:40 07/03/18 06:40 Active Medications Albuterol Sulfate (Ventolin 0.083% Nebulizer Soln -) 1 amp NEB Q4H PRN PRN Reason: SHORT OF BREATH/WHEEZING Albuterol/Ipratropium (Duoneb -) 1 amp NEB RQID [facility] Last Admin: 07/03/18 11:39 Dose: 1 amp Amlodipine Besylate (Norvasc -) 5 mg PO DAILY [facility] Last Admin: 07/03/18 11:49 Dose: 5 mg Heparin Sodium (Porcine) (Heparin -) 5,000 unit SQ TID [facility] Last Admin: 07/03/18 13:38 Dose: 5,000 unit Ceftriaxone Sodium 2 gm/ (Dextrose) 100 mls @ 200 mls/hr IVPB DAILY [facility]; Protocol Last Admin: 07/03/18 09:59 Dose: 200 mls/hr Levofloxacin (Levaquin 750 Mg Premixed Ivpb -) 750 mg in 150 mls @ 150 mls/hr IVPB DAILY [facility]; Protocol Methylprednisolone Sodium Succinate (Solu-Medrol -) 60 mg IVPB Q6H-IV [facility] Last Admin: 07/03/18 09:19 Dose: 60 mg Montelukast Sodium (Singulair -) 10 mg PO HS [facility] Last Admin: 07/02/18 21:29 Dose: 10 mg Ranitidine HCl (Zantac -) 150 mg PO DAILY [facility] Last Admin: 07/03/18 09:19 Dose: 150 mg ASSESSMENT AND PLAN: Acute Hypoxic Respiratory Failure Pneumonia Acute Bronchospasm Obstructive Sleep Apnea HTN - continue antibiotics - f/u cultures - IV medrol - inhaled bronchodilators - o2 to keep SpO2 >90% - BiPAP settings adjusted - DVT prophylaxis - will need outpt f/u of chest imaging - will continue to monitor
--- NOTE | 2018-07-03 16:37 | PN ---
Progress Note (short form) - Note Progress Note: Chief Complaint: Events noted, notes reviewed, acute dyspnea related to acute bronchitis cannot exclude underlying interstitial lung disease, sinus rhythm/ sinus tachycardia History of Present Illness: Seen and examined on telemetry. Full consult dictated Medications: Current Medications Albuterol Sulfate (Ventolin 0.083% Nebulizer Soln -) 1 amp NEB Q4H PRN PRN Reason: SHORT OF BREATH/WHEEZING Albuterol/Ipratropium (Duoneb -) 1 amp NEB RQID [facility] Last Admin: 07/03/18 16:01 Dose: 1 amp Amlodipine Besylate (Norvasc -) 5 mg PO DAILY [facility] Last Admin: 07/03/18 11:49 Dose: 5 mg Heparin Sodium (Porcine) (Heparin -) 5,000 unit SQ TID [facility] Last Admin: 07/03/18 13:38 Dose: 5,000 unit Ceftriaxone Sodium 2 gm/ (Dextrose) 100 mls @ 200 mls/hr IVPB DAILY [facility]; Protocol Last Admin: 07/03/18 09:59 Dose: 200 mls/hr Levofloxacin (Levaquin 750 Mg Premixed Ivpb -) 750 mg in 150 mls @ 150 mls/hr IVPB DAILY [facility]; Protocol Last Admin: 07/03/18 15:48 Dose: 150 mls/hr Methylprednisolone Sodium Succinate (Solu-Medrol -) 60 mg IVPB Q6H-IV [facility] Last Admin: 07/03/18 15:30 Dose: 60 mg Montelukast Sodium (Singulair -) 10 mg PO HS [facility] Last Admin: 07/02/18 21:29 Dose: 10 mg Ranitidine HCl (Zantac -) 150 mg PO DAILY [facility] Last Admin: 07/03/18 09:19 Dose: 150 mg Review of Systems - Review of Systems Constitutional: no symptoms reported Respiratory: reports Cough and Sputum Production Cardiovascular: as noted above Gastrointestinal: denies Nausea, Vomiting, Diarrhea, Constipation or Abdominal Pain Genitourinary: no symptoms reported Musculoskeletal: no symptoms reported Endocrine: no symptoms reported Vital Signs: Last Vital Signs Temp Pulse Resp BP Pulse Ox 97.2 F L 93 H 20 122/62 96 07/03/18 13:18 07/03/18 13:18 07/03/18 13:18 07/03/18 13:18 07/03/18 15:59 Intake & Output 06/30/18 07/01/18 07/02/18 07/03/18 23:59 23:59 23:59 23:59 Intake Total 100 440 Output Total 600 Balance -500 440 Weight 251 lb 251 lb 9.6 oz Neck: Supple Negative JVD Respiratory: Bilateral Scattered Rhonchi Diminished Breath Sounds at the Bases Cardiovascular: S1 S2 Regular Rate and Rhythm Tachycardia Grade 1/6 SM Gastrointestinal: Soft Benign Normal Bowel Sounds Ext: Negative Edema Labs: ABG Results ABG pH 7.43 (7.35-7.45) 07/02/18 12:40 ABG pCO2 at Pt Temp 38.6 mmHg (35-45) 07/02/18 12:40 ABG pO2 at Pt Temp 52.9 mmHg (80-100) L 07/02/18 12:40 ABG HCO3 25.0 meq/L (22-26) 07/02/18 12:40 ABG O2 Sat (Measured) 85.3 % (90-98.9) L 07/02/18 12:40 ABG O2 Content 18.2 % vol (15-22) 07/02/18 12:40 ABG Base Excess 1.3 meq/l (-2-2) 07/02/18 12:40 Troponin, BNP 07/03/18 06:40 Troponin I < 0.02 CBC, BMP 07/03/18 06:40 07/03/18 06:40 Hepatic Panel Total Bilirubin 0.6 mg/dL (0.2-1) 07/03/18 06:40 AST 23 U/L (15-37) 07/03/18 06:40 ALT 57 U/L (13-61) 07/03/18 06:40 Alkaline Phosphatase 31 U/L (45-117) L 07/03/18 06:40 Albumin 2.6 g/dl (3.4-5.0) L 07/03/18 06:40 INR, PTT INR 1.23 (0.83-1.09) H 07/02/18 12:39 Assessment/Plan ASSESSMENT: 1. Clinical presentation consistent with acute bronchitis with underlying interstitial lung disease to be excluded 2. Diastolic LV dysfunction with clinical class 0 NYHA classification LV failure , to be excluded 3. Known history of obstructive sleep apnea poor compliance with BiPAP utilization, cannot exclude pulmonary hypertension 4. HTN/HCVD 5. Morbid obesity PLAN: 1. Continue Norvasc 2. Ideally should be on ACEI or ARBS unless contraindicated 3. Bronchodilators and steroids as per primary team/pulmonary team 4. Antibiotics as per the primary team 5. Echocardiography to evaluate LV/RV function and RVSP if patient remains hospitalized on Thursday, otherwise outpatient testing Miguel Servin M.D.
--- NOTE | 2018-07-03 17:07 | CONS ---
DATE OF CONSULTATION: 07/03/2018 CONSULTATION REQUESTED BY: ALEX FARRIS M.D. CHIEF COMPLAINT: Progressive dyspnea, cardiovascular evaluation. A 37-year-old morbidly obese man of [place] with known history of hypertensive cardiovascular disease, obstructive sleep apnea, noncompliant with BiPAP utilization. No history of pulmonary hypertension. Prior history of tobacco abuse who denied diabetes mellitus, hypercholesterolemia, who presented to [facility] from his primary care's office with increasing dyspnea and cough productive of clear sputum. Patient recently was treated for an upper respiratory tract infection, and subsequently upon followup was noted to have persistence of dyspnea. In addition, reported expiratory wheezing. Hospitalized, at which point patient was noted to be hypoxic. CT scan of the chest was performed, report was noted, no evidence of acute pulmonary thromboembolism. Patient currently continues to report persistence of dyspnea and cough productive of clear sputum. Patient denies any orthopnea or paroxysmal nocturnal dyspnea. Patient denies any peripheral edema. Patient denies any chest discomfort. Patient denies any palpitations, dizziness, lightheadedness or syncope. Patient does not report any prior history of coronary artery disease or congestive heart failure. PAST MEDICAL HISTORY: Hypertensive cardiovascular disease, obstructive sleep apnea, poor compliance with BiPAP utilization. PAST SURGICAL HISTORY: Pilonidal cyst surgery. SOCIAL HISTORY: Prior history of smoking. FAMILY HISTORY: No family history of premature coronary artery disease. ALLERGIES: None reported. MEDICAL THERAPY: Currently includes Ventolin nebulizer, DuoNeb nebulizer, Norvasc 5 mg once a day, subcutaneous heparin 5000 units 3 times a day, ceftriaxone 2 g IV daily, levofloxacin 750 mg once daily, Solu-Medrol 60 mg every 6 hours, Singulair 10 mg once a day, Zantac 150 mg once daily. REVIEW OF SYSTEMS: Head and Neck: Denies headache, photophobia, blurring of vision. Respiratory: Cough productive of clear sputum. Cardiovascular: As noted above. Gastrointestinal: Denies nausea, vomiting, diarrhea, abdominal discomfort. Genitourinary: No symptoms reported. PHYSICAL EXAMINATION: Vital Signs: Blood pressure is 122/62 mmHg. Pulse rate is 93 beats per minute. Head and Neck: Pupils were equal, round and reactive to light and accommodation. Extraocular movements intact. Nonicteric sclerae. Negative JVD. No bruit appreciated. Chest: Bilateral scattered rhonchi. Diminished breath sounds at the bases. Cardiovascular: S1, S1, regular. Grade 1/6 systolic apical murmur. No clicks or gallops. Abdomen: Soft, benign. Normoactive bowel sounds. Extremities: Negative edema. Intact distal pulses. No calf tenderness. Electrocardiogram revealed sinus tachycardia with nonspecific T-wave abnormality. Chest x-ray report was noted. CT scan of the chest report was noted. ABG revealed a pH of 7.43, pCO2 of 38.6, pO2 of 52.9, saturation 85%, troponin less than 0.02. CBC revealed a white cell count of 15.4, hemoglobin 13.9, platelet count 337, basic metabolic profile revealed sodium 140, potassium 4.6, BUN of 19, creatinine 0.9, glucose 106. ASSESSMENT: 1. Clinical presentation consistent with acute bronchitis with underlying interstitial lung disease to be excluded. 2. Diastolic left ventricular dysfunction with clinical Class 0 [place] Heart Association Classification. Left ventricular failure to be excluded. 3. Known history of obstructive sleep apnea, poor compliance with BiPAP utilization. Cannot exclude pulmonary hypertension. 4. Hypertensive cardiovascular disease. 5. Morbid obesity. RECOMMENDATION: 1. Continuation of Norvasc. 2. Ideally should be on MARY inhibitor or Angiotensin Receptor Parker unless contraindicated. 3. Bronchodilators and steroids as per the primary team/pulmonary team. 4. Antibiotic as per the primary team. 5. Echocardiography for evaluation of left ventricular and right ventricular function, then RVSP measurement if patient remains hospitalized on Thursday. Otherwise, tests can be performed on outpatient basis. Thank you for the kind referral. RC BATEMAN M.D. KATARZYNA/[id number]
[2018-07-03] MEDS: MUPIROCIN 2% TOPICAL OINTMENT FOR DECOLONIZATION NS SCH (20:54)
[2018-07-03] MEDS: MONTELUKAST NA 10 MG TABLET PO SCH (21:15)
[2018-07-04] MEDS: methylPREDNISolone NA SUCC 40 MG/1 ML VIAL IVPB SCH ×4 (02:40→21:50)
[2018-07-04] MEDS: HEPARIN NA (PORCINE) 5,000 UNITS/ML 1ML VIAL SQ SCH ×3 (05:51→21:49)
[2018-07-04] MEDS: ALBUTEROL SO4 2.5/IPRATROPIUM 0.5 INH SOL 3 ML VIAL.NEB. NEB SCH ×3 (07:30→15:39)
[2018-07-04 07:46] LABS: ALBUMIN 2.9 g/dl (3.4-5.0); ALK PHOS 33 U/L (45-117); ANION GAP 8 MMOL/L (8-16); BILIRUBIN,TOTAL 0.5 mg/dL (0.2-1); BLOOD UREA NITROGEN 20 mg/dL (7-18); CALCIUM 8.6 mg/dL (8.5-10.1); CHLORIDE 103 mmol/L (98-107); CO2 30 mmol/L (21-32); CREATININE 0.9 mg/dL (0.55-1.3); GLUCOSE,RANDOM 129 mg/dL (74-106); SGOT/AST 31 U/L (15-37); SGPT/ALT 75 U/L (13-61); SODIUM 141 mmol/L (136-145); TOT PROT 7.1 g/dl (6.4-8.2)
[2018-07-04 07:50] LABS: BASO % 0.1 % (0-2.0); EOS % 0.1 % (0-4.5); HEMATOCRIT 42.7 % (35.4-49); HEMOGLOBIN 15.1 GM/dL (11.7-16.9); LYMPH % 7.3 % (8-40); MCH 30.9 pg (25.7-33.7); MCHC 35.3 g/dl (32.0-35.9); MEAN CELL VOLUME 87.7 fl (80-96); MEAN PLT VOLUME 10.4 fl (7.5-11.1); MONO % 2.6 % (3.8-10.2); NEUT % 89.9 % (42.8-82.8); PLATELET COUNT 381 K/MM3 (134-434); RBC 4.87 M/mm3 (4.00-5.60)
--- NOTE | 2018-07-04 09:43 | PN ---
Progress Note (short form) - Note Progress Note: Chief Complaint: Events noted, notes reviewed, dyspnea persists denies any chest pain, complaining of persistent cough, remains on BiPAP History of Present Illness: Seen and examined on telemetry. Events noted, notes reviewed, dyspnea persists denies any chest pain, complaining of persistent cough, remains on BiPAP Medications: Current Medications Albuterol Sulfate (Ventolin 0.083% Nebulizer Soln -) 1 amp NEB Q4H PRN PRN Reason: SHORT OF BREATH/WHEEZING Albuterol/Ipratropium (Duoneb -) 1 amp NEB RQID [facility] Last Admin: 07/04/18 07:30 Dose: 1 amp Amlodipine Besylate (Norvasc -) 5 mg PO DAILY [facility] Last Admin: 07/03/18 11:49 Dose: 5 mg Heparin Sodium (Porcine) (Heparin -) 5,000 unit SQ TID [facility] Last Admin: 07/04/18 05:51 Dose: 5,000 unit Ceftriaxone Sodium 2 gm/ (Dextrose) 100 mls @ 200 mls/hr IVPB DAILY [facility]; Protocol Last Admin: 07/03/18 09:59 Dose: 200 mls/hr Levofloxacin (Levaquin 750 Mg Premixed Ivpb -) 750 mg in 150 mls @ 150 mls/hr IVPB DAILY [facility]; Protocol Last Admin: 07/03/18 15:48 Dose: 150 mls/hr Methylprednisolone Sodium Succinate (Solu-Medrol -) 60 mg IVPB Q6H-IV [facility] Last Admin: 07/04/18 02:40 Dose: 60 mg Montelukast Sodium (Singulair -) 10 mg PO HS [facility] Last Admin: 07/03/18 21:15 Dose: 10 mg Ranitidine HCl (Zantac -) 150 mg PO DAILY [facility] Last Admin: 07/03/18 09:19 Dose: 150 mg Review of Systems - Review of Systems Constitutional: no symptoms reported Respiratory: reports Cough as noted above Cardiovascular: as noted above Gastrointestinal: denies Nausea, Vomiting, Diarrhea, Constipation or Abdominal Pain Genitourinary: no symptoms reported Musculoskeletal: no symptoms reported Endocrine: no symptoms reported Vital Signs: Last Vital Signs Temp Pulse Resp BP Pulse Ox 98.3 F 76 20 121/70 98 07/04/18 06:00 07/04/18 06:00 07/04/18 06:00 07/04/18 06:00 07/03/18 21:00 Intake & Output 07/01/18 07/02/18 07/03/18 07/04/18 23:59 23:59 23:59 23:59 Intake Total 100 1260 Output Total 600 Balance -500 1260 Weight 251 lb 251 lb 9.6 oz Neck: Supple Negative JVD Respiratory: Bilateral Scattered Rhonchi Diminished Breath Sounds at the Bases Cardiovascular: S1 S2 Regular Rate and Rhythm Tachycardia Grade 1/6 SM Gastrointestinal: Soft Benign Normal Bowel Sounds Ext: Negative Edema Labs: CBC, BMP 07/04/18 06:25 07/04/18 06:25 Hepatic Panel Total Bilirubin 0.5 mg/dL (0.2-1) 07/04/18 06:25 AST 31 U/L (15-37) 07/04/18 06:25 ALT 75 U/L (13-61) H 07/04/18 06:25 Alkaline Phosphatase 33 U/L (45-117) L 07/04/18 06:25 Albumin 2.9 g/dl (3.4-5.0) L 07/04/18 06:25 ABG Results ABG pH 7.43 (7.35-7.45) 07/02/18 12:40 ABG pCO2 at Pt Temp 38.6 mmHg (35-45) 07/02/18 12:40 ABG pO2 at Pt Temp 52.9 mmHg (80-100) L 07/02/18 12:40 ABG HCO3 25.0 meq/L (22-26) 07/02/18 12:40 ABG O2 Sat (Measured) 85.3 % (90-98.9) L 07/02/18 12:40 ABG O2 Content 18.2 % vol (15-22) 07/02/18 12:40 ABG Base Excess 1.3 meq/l (-2-2) 07/02/18 12:40 Assessment/Plan ASSESSMENT: 1. Clinical presentation consistent with acute bronchitis with underlying interstitial lung disease to be excluded 2. Diastolic LV dysfunction with clinical class 0 NYHA classification LV failure , to be excluded, await echocardiography 3. Known history of obstructive sleep apnea poor compliance with BiPAP utilization, cannot exclude pulmonary hypertension, await echocardiography 4. HTN/HCVD 5. Morbid obesity PLAN: 1. Continue Norvasc 2. As outlined ideally should be on ACEI or ARBS unless contraindicated 3. Bronchodilators and steroids as per primary team/pulmonary team 4. Antibiotics as per the primary team 5. As suggested echocardiography to evaluate LV/RV function and RVSP if patient remains hospitalized on Thursday, otherwise outpatient testing Miguel Servin M.D.
[2018-07-04] MEDS ORDERED: DEXTROSE 5%-WATER 100 ML IVPB ONE (09:55)
[2018-07-04] MEDS: CEFTRIAXONE 2 GM in DEXTROSE 5%-WATER 100 ML IVPB SCH (09:58)
[2018-07-04] MEDS: amLODIPine BESYLATE 5 MG TABLET (FP) PO SCH (09:58)
[2018-07-04] MEDS: RANITIDINE HCL 150 MG TABLET (FP) PO SCH (09:59)
--- NOTE | 2018-07-04 11:11 | PN ---
Progress Note, Physician Chief Complaint: SOB present pt is on BIPAP vitals stable, afebrile Blood cul negative - Current Medication List Current Medications: Active Medications Albuterol Sulfate (Ventolin 0.083% Nebulizer Soln -) 1 amp NEB Q4H PRN PRN Reason: SHORT OF BREATH/WHEEZING Albuterol/Ipratropium (Duoneb -) 1 amp NEB RQID [facility] Last Admin: 07/04/18 07:30 Dose: 1 amp Amlodipine Besylate (Norvasc -) 5 mg PO DAILY [facility] Last Admin: 07/04/18 09:58 Dose: 5 mg Heparin Sodium (Porcine) (Heparin -) 5,000 unit SQ TID [facility] Last Admin: 07/04/18 05:51 Dose: 5,000 unit Ceftriaxone Sodium 2 gm/ (Dextrose) 100 mls @ 200 mls/hr IVPB DAILY [facility]; Protocol Last Admin: 07/04/18 09:58 Dose: 200 mls/hr Levofloxacin (Levaquin 750 Mg Premixed Ivpb -) 750 mg in 150 mls @ 150 mls/hr IVPB DAILY [facility]; Protocol Last Admin: 07/04/18 09:58 Dose: 150 mls/hr Methylprednisolone Sodium Succinate (Solu-Medrol -) 60 mg IVPB Q6H-IV [facility] Last Admin: 07/04/18 09:58 Dose: 60 mg Montelukast Sodium (Singulair -) 10 mg PO HS [facility] Last Admin: 07/03/18 21:15 Dose: 10 mg Ranitidine HCl (Zantac -) 150 mg PO DAILY [facility] Last Admin: 07/04/18 09:59 Dose: 150 mg - Objective Vital Signs: Vital Signs Temperature 98.3 F 07/04/18 06:00 Pulse Rate 76 07/04/18 06:00 Respiratory Rate 20 07/04/18 06:00 Blood Pressure 121/70 07/04/18 06:00 O2 Sat by Pulse Oximetry (%) 98 07/03/18 21:00 Constitutional: Yes: Mild Distress, Obese Eyes: Yes: Conjunctiva Clear HENT: Yes: Atraumatic, Normocephalic Neck: Yes: Supple, Trachea Midline Cardiovascular: Yes: Regular Rate and Rhythm Respiratory: Yes: Regular, Diminished, Rhonchi, Wheezes Gastrointestinal: Yes: Normal Bowel Sounds, Soft Musculoskeletal: Yes: WNL Extremities: Yes: WNL Edema: No Peripheral Pulses WNL: Yes Neurological: Yes: WNL, Alert, Oriented ...Motor Strength: WNL Psychiatric: Yes: WNL Labs: CBC, BMP 07/04/18 06:25 07/04/18 06:25 INR, PTT INR 1.23 (0.83-1.09) H 07/02/18 12:39 Assessment/Plan Acute hypoxic resp failur likely from acute bronchospasm with? interstitial lung disease Atypical LLL pneumonia Leucocytosis ?steroid induced coming down HTN Obesity Sleep apnoea PLAN Continue IV steroid Bronchodialators Continue antibiotics PULmonary cardiology and ID f/uConsult Monitor Labs
--- NOTE | 2018-07-04 13:59 | PN ---
Progress Note (short form) - Note Progress Note: PULMONARY Breathing better today. Off BiPAP now on NRB. +nonproductive cough. Vital Signs Period Temp Pulse Resp BP Sys/Sage Pulse Ox Last 24 Hr 97.3 F-98.3 F 76-103 18-22 121-137/64-90 96-98 Gen: less tachypneic Heart: RRR Lung: decreased breath sounds at the bases Abd: soft, nontender Ext: no edema CBC, BMP 07/04/18 06:25 07/04/18 06:25 Active Medications Albuterol Sulfate (Ventolin 0.083% Nebulizer Soln -) 1 amp NEB Q4H PRN PRN Reason: SHORT OF BREATH/WHEEZING Albuterol/Ipratropium (Duoneb -) 1 amp NEB RQID [facility] Last Admin: 07/04/18 11:39 Dose: 1 amp Amlodipine Besylate (Norvasc -) 5 mg PO DAILY [facility] Last Admin: 07/04/18 09:58 Dose: 5 mg Heparin Sodium (Porcine) (Heparin -) 5,000 unit SQ TID [facility] Last Admin: 07/04/18 05:51 Dose: 5,000 unit Ceftriaxone Sodium 2 gm/ (Dextrose) 100 mls @ 200 mls/hr IVPB DAILY [facility]; Protocol Last Admin: 07/04/18 09:58 Dose: 200 mls/hr Levofloxacin (Levaquin 750 Mg Premixed Ivpb -) 750 mg in 150 mls @ 150 mls/hr IVPB DAILY [facility]; Protocol Last Admin: 07/04/18 09:58 Dose: 150 mls/hr Methylprednisolone Sodium Succinate (Solu-Medrol -) 60 mg IVPB Q6H-IV [facility] Last Admin: 07/04/18 09:58 Dose: 60 mg Montelukast Sodium (Singulair -) 10 mg PO HS [facility] Last Admin: 07/03/18 21:15 Dose: 10 mg Ranitidine HCl (Zantac -) 150 mg PO DAILY [facility] Last Admin: 07/04/18 09:59 Dose: 150 mg A/P Acute Hypoxic Respiratory Failure Pneumonia Acute Bronchospasm Obstructive Sleep Apnea HTN - continue antibiotics - f/u cultures - continue medrol, can likely taper in AM - inhaled bronchodilators - taper o2 to keep SpO2 >90% - BiPAP as needed - DVT prophylaxis - will need outpt f/u of chest imaging
--- NOTE | 2018-07-04 15:17 | PN ---
Progress Note (short form) - Note Progress Note: feels markedly improved able to ambulate now on NRB mask Vital Signs Period Temp Pulse Resp BP Sys/Sage Pulse Ox Last 24 Hr 97.3 F-98.3 F 76-103 18-22 119-137/64-90 96-98 cor-rrr lungs decreased bs at bases abd soft,nt ext no edema CBC, BMP 07/04/18 06:25 07/04/18 06:25 Microbiology 07/03/18 13:55 Sputum - Expectorated Gram Stain - Final 07/02/18 11:45 Blood - Peripheral Venous Blood Culture - Preliminary NO GROWTH OBTAINED AFTER 48 HOURS, INCUBATION TO CONTINUE FOR 3 DAYS. 07/02/18 11:45 Blood - Peripheral Venous Blood Culture - Preliminary NO GROWTH OBTAINED AFTER 48 HOURS, INCUBATION TO CONTINUE FOR 3 DAYS. 07/03/18 18:00 Urine For Antigen Detection Legionella Antigen - Final- negative 07/03/18 18:00 Urine For Antigen Detection Streptococcus pneumoniae Antigen (M - Final-negative Current Medications Albuterol Sulfate (Ventolin 0.083% Nebulizer Soln -) 1 amp NEB Q4H PRN PRN Reason: SHORT OF BREATH/WHEEZING Albuterol/Ipratropium (Duoneb -) 1 amp NEB RQID [facility] Last Admin: 07/04/18 15:39 Dose: 1 amp Amlodipine Besylate (Norvasc -) 5 mg PO DAILY [facility] Last Admin: 07/04/18 09:58 Dose: 5 mg Heparin Sodium (Porcine) (Heparin -) 5,000 unit SQ TID [facility] Last Admin: 07/04/18 15:34 Dose: 5,000 unit Ceftriaxone Sodium 2 gm/ (Dextrose) 100 mls @ 200 mls/hr IVPB DAILY [facility]; Protocol Last Admin: 07/04/18 09:58 Dose: 200 mls/hr Levofloxacin (Levaquin 750 Mg Premixed Ivpb -) 750 mg in 150 mls @ 150 mls/hr IVPB DAILY [facility]; Protocol Last Admin: 07/04/18 09:58 Dose: 150 mls/hr Methylprednisolone Sodium Succinate (Solu-Medrol -) 60 mg IVPB Q6H-IV [facility] Last Admin: 07/04/18 15:34 Dose: 60 mg Montelukast Sodium (Singulair -) 10 mg PO HS [facility] Last Admin: 07/03/18 21:15 Dose: 10 mg Ranitidine HCl (Zantac -) 150 mg PO DAILY [facility] Last Admin: 07/04/18 09:59 Dose: 150 mg a/p acute hypoxemic resp failure pneumonia per dr shah's noted, declined HIV testing continue trista d/c ceftriaxone echo in am
[2018-07-04] MEDS: MONTELUKAST NA 10 MG TABLET PO SCH (21:50)
[2018-07-05] MEDS: methylPREDNISolone NA SUCC 40 MG/1 ML VIAL IVPB SCH ×4 (02:56→21:31)
[2018-07-05] MEDS: HEPARIN NA (PORCINE) 5,000 UNITS/ML 1ML VIAL SQ SCH ×3 (06:51→21:32)
[2018-07-05] MEDS: ALBUTEROL SO4 2.5/IPRATROPIUM 0.5 INH SOL 3 ML VIAL.NEB. NEB SCH ×4 (07:15→20:30)
[2018-07-05] MEDS ORDERED: PT OWN MED DRAWER 7, Y5N ONE (09:25)
[2018-07-05] MEDS: RANITIDINE HCL 150 MG TABLET (FP) PO SCH (09:32)
[2018-07-05] MEDS: amLODIPine BESYLATE 5 MG TABLET (FP) PO SCH (09:32)
--- NOTE | 2018-07-05 11:25 | PN ---
Progress Note, Physician History of Present Illness: Dyspnea, cough and wheeze improving with treatment. - Current Medication List Current Medications: Active Medications Albuterol Sulfate (Ventolin 0.083% Nebulizer Soln -) 1 amp NEB Q4H PRN PRN Reason: SHORT OF BREATH/WHEEZING Albuterol/Ipratropium (Duoneb -) 1 amp NEB RQID [facility] Last Admin: 07/05/18 07:15 Dose: 1 amp Amlodipine Besylate (Norvasc -) 5 mg PO DAILY [facility] Last Admin: 07/05/18 09:32 Dose: 5 mg Heparin Sodium (Porcine) (Heparin -) 5,000 unit SQ TID [facility] Last Admin: 07/05/18 06:51 Dose: 5,000 unit Levofloxacin (Levaquin 750 Mg Premixed Ivpb -) 750 mg in 150 mls @ 150 mls/hr IVPB DAILY [facility]; Protocol Last Admin: 07/05/18 09:31 Dose: 150 mls/hr Methylprednisolone Sodium Succinate (Solu-Medrol -) 60 mg IVPB Q6H-IV [facility] Last Admin: 07/05/18 09:32 Dose: 60 mg Montelukast Sodium (Singulair -) 10 mg PO HS [facility] Last Admin: 07/04/18 21:50 Dose: 10 mg Ranitidine HCl (Zantac -) 150 mg PO DAILY [facility] Last Admin: 07/05/18 09:32 Dose: 150 mg - Objective Vital Signs: Vital Signs Temperature 98 F 07/05/18 10:00 Pulse Rate 96 H 07/05/18 10:00 Respiratory Rate 20 07/05/18 10:00 Blood Pressure 107/68 07/05/18 10:00 O2 Sat by Pulse Oximetry (%) 97 07/05/18 09:00 Constitutional: Yes: No Distress, Calm Neck: Yes: Supple Cardiovascular: Yes: Regular Rate and Rhythm Respiratory: Yes: Regular, Diminished, On Venti-Mask Gastrointestinal: Yes: Normal Bowel Sounds, Soft Edema: No Labs: CBC, BMP 07/04/18 06:25 07/04/18 06:25 INR, PTT INR 1.23 (0.83-1.09) H 07/02/18 12:39 - ....Imaging EKG: Report Reviewed (Tele: ST) Problem List - Problems (1) Pneumonia Code(s): J18.9 - PNEUMONIA, UNSPECIFIED ORGANISM Qualifiers: Pneumonia type: due to unspecified organism Laterality: left Lung location: lower lobe of lung Qualified Code(s): J18.1 - Lobar pneumonia, unspecified organism (2) Reactive airway disease Code(s): J45.909 - UNSPECIFIED ASTHMA, UNCOMPLICATED Assessment/Plan 1. Clinical presentation consistent with Acute Hypoxic Respiratory Failure / acute bronchitis with community acquired V. atypical LLL pneumonia 2. Diastolic LV dysfunction with clinical class 0 NYHA classification LV failure , to be excluded, await echocardiography 3. Known history of obstructive sleep apnea poor compliance with BiPAP utilization, cannot exclude pulmonary hypertension, await echocardiography 4. HTN/HCVD 5. Morbid obesity with OSAS PLAN: 1. Continue Norvasc 5 qd 2. As outlined ideally should be on ACEI or ARBS unless contraindicated 3. Bronchodilators, O2, Bipap as needed, Singulair and IV steroid taper with GI protection as per primary team/pulmonary team 4. Antibiotics as per the primary team 5. F/u echocardiography to evaluate LV/RV function and RVSP 6. PSG and PFTs as outpt
--- NOTE | 2018-07-05 11:32 | PN ---
Progress Note, Physician Chief Complaint: pt SITTING IN CHAIR on RBRs SOB improved BIPAP in the night time vitals stable, afebrile Blood cul negativep LIEgenella antigen negative - Current Medication List Current Medications: Active Medications Albuterol Sulfate (Ventolin 0.083% Nebulizer Soln -) 1 amp NEB Q4H PRN PRN Reason: SHORT OF BREATH/WHEEZING Albuterol/Ipratropium (Duoneb -) 1 amp NEB RQID [facility] Last Admin: 07/05/18 07:15 Dose: 1 amp Amlodipine Besylate (Norvasc -) 5 mg PO DAILY [facility] Last Admin: 07/05/18 09:32 Dose: 5 mg Heparin Sodium (Porcine) (Heparin -) 5,000 unit SQ TID [facility] Last Admin: 07/05/18 06:51 Dose: 5,000 unit Levofloxacin (Levaquin 750 Mg Premixed Ivpb -) 750 mg in 150 mls @ 150 mls/hr IVPB DAILY [facility]; Protocol Last Admin: 07/05/18 09:31 Dose: 150 mls/hr Methylprednisolone Sodium Succinate (Solu-Medrol -) 60 mg IVPB Q6H-IV [facility] Last Admin: 07/05/18 09:32 Dose: 60 mg Montelukast Sodium (Singulair -) 10 mg PO HS [facility] Last Admin: 07/04/18 21:50 Dose: 10 mg Ranitidine HCl (Zantac -) 150 mg PO DAILY [facility] Last Admin: 07/05/18 09:32 Dose: 150 mg - Objective Vital Signs: Vital Signs Temperature 98 F 07/05/18 10:00 Pulse Rate 96 H 07/05/18 10:00 Respiratory Rate 20 07/05/18 10:00 Blood Pressure 107/68 07/05/18 10:00 O2 Sat by Pulse Oximetry (%) 97 07/05/18 09:00 Constitutional: Yes: No Distress Eyes: Yes: Conjunctiva Clear, PERRL HENT: Yes: Atraumatic Neck: Yes: Supple, Trachea Midline Cardiovascular: Yes: Regular Rate and Rhythm Respiratory: Yes: Regular, CTA Bilaterally, On Nasal O2, SOB on Exertion Gastrointestinal: Yes: Normal Bowel Sounds, Soft Musculoskeletal: Yes: WNL Extremities: Yes: WNL Edema: No Peripheral Pulses WNL: Yes Neurological: Yes: WNL, Alert ...Motor Strength: WNL Psychiatric: Yes: WNL Labs: CBC, BMP 07/04/18 06:25 07/04/18 06:25 INR, PTT INR 1.23 (0.83-1.09) H 07/02/18 12:39 Assessment/Plan Acute hypoxic resp failur likely from acute bronchospasm with? interstitial lung disease Atypical LLL pneumonia Leucocytosis ?steroid induced coming down HTN Obesity Sleep apnoea PLAN Continue IV steroid Bronchodialators Continue antibiotics PULmonary cardiology and ID f/uConsult Monitor Labs
--- NOTE | 2018-07-05 12:16 | ECHO ---
Name: KARINA TOWNSEND Exam:Adult Echocardiogram Study Date: 07/05/2018 07:24 AM Age: 37 yrs Reason For Study: SHORTNESS OF BREATH Height: 67 in Weight: 251 lb BSA: 2.2 m2 MMode/2D Measurements & Calculations IVSd: 1.0 cm Ao root diam: 3.3 cm LVIDd: 4.5 cm LA dimension: 3.4 cm LVIDs: 2.8 cm ACS: 2.1 cm LVPWd: 0.89 cm IVSs: 1.0 cm LVPWs: 1.1 cm EDV(Teich): 92.0 ml ESV(Teich): 30.0 ml Doppler Measurements & Calculations MV E max christiano: 104.6 cm/sec Ao V2 max: 120.8 cm/sec MV A max christiano: 84.4 cm/sec Ao max P.8 mmHg MV E/A: 1.2 Ao V2 mean: 76.7 cm/sec Ao mean P.7 mmHg Ao V2 VTI: 24.6 cm Med Peak E' Christiano: 10.6 cm/sec Med E/e': 9.8 Lat Peak E' Christiano: 14.5 cm/sec Lat E/e': 7.2 Procedure A complete two-dimensional transthoracic echocardiogram was performed (2D, M-mode, Doppler and color flow Doppler). Left Ventricle The left ventricle is normal in size. Left ventricular systolic function is normal. Ejection Fraction = 65- 70%. No regional wall motion abnormalities noted. Right Ventricle The right ventricle is normal size. The right ventricular systolic function is normal. Atria The left atrial size is normal. Right atrial size is normal. Mitral Valve There is mild mitral annular calcification. There is trace mitral regurgitation. Tricuspid Valve The tricuspid valve is normal in structure and function. No tricuspid regurgitation. Aortic Valve The aortic valve is normal in structure and function. No aortic regurgitation is present. Pulmonic Valve The pulmonic valve is not well visualized. Great Vessels The aortic root is normal size. Pericardium/Pleura There is no pericardial effusion. Interpretation Summary The left ventricle is normal in size. Left ventricular systolic function is normal. No regional wall motion abnormalities noted. Ejection Fraction = 65-70%. The right ventricular systolic function is normal. The left atrial size is normal. Right atrial size is normal. There is mild mitral annular calcification. There is trace mitral regurgitation. There is no pericardial effusion. Previous study is not available for comparison Robin Woodruff MD 07/05/2018 12:15 PM
--- NOTE | 2018-07-05 12:16 | PN ---
Progress Note (short form) - Note Progress Note: OOB to chair. Still on 100% NRBM. Subjective improvement over the last few days. Used NIPPV with benefit overnight. Nonproductive cough. Intake & Output 07/02/18 07/03/18 07/04/18 07/05/18 23:59 23:59 23:59 23:59 Intake Total 100 1260 750 270 Output Total 600 Balance -500 1260 750 270 Weight 251 lb 251 lb 9.6 oz Last Vital Signs Temp Pulse Resp BP Pulse Ox 98 F 96 H 20 107/68 97 07/05/18 10:00 07/05/18 10:00 07/05/18 10:00 07/05/18 10:00 07/05/18 09:00 Active Medications Albuterol Sulfate (Ventolin 0.083% Nebulizer Soln -) 1 amp NEB Q4H PRN PRN Reason: SHORT OF BREATH/WHEEZING Albuterol/Ipratropium (Duoneb -) 1 amp NEB RQID [facility] Last Admin: 07/05/18 11:30 Dose: 1 amp Amlodipine Besylate (Norvasc -) 5 mg PO DAILY [facility] Last Admin: 07/05/18 09:32 Dose: 5 mg Heparin Sodium (Porcine) (Heparin -) 5,000 unit SQ TID [facility] Last Admin: 07/05/18 06:51 Dose: 5,000 unit Levofloxacin (Levaquin 750 Mg Premixed Ivpb -) 750 mg in 150 mls @ 150 mls/hr IVPB DAILY [facility]; Protocol Last Admin: 07/05/18 09:31 Dose: 150 mls/hr Methylprednisolone Sodium Succinate (Solu-Medrol -) 60 mg IVPB Q6H-IV [facility] Last Admin: 07/05/18 09:32 Dose: 60 mg Montelukast Sodium (Singulair -) 10 mg PO HS [facility] Last Admin: 07/04/18 21:50 Dose: 10 mg Ranitidine HCl (Zantac -) 150 mg PO DAILY [facility] Last Admin: 07/05/18 09:32 Dose: 150 mg Gen: Awake and alert, mildly tachypneic at rest Heart: RRR Lung: decreased breath sounds at the bases, few scattered rhonchi, No wheeze Abd: soft, nontender Ext: no edema A/P Acute Hypoxic Respiratory Failure (?) Hypersensitivity Pneumonitis Pneumonia Acute Bronchospasm Obstructive Sleep Apnea HTN - ABX - continue medrol at current dose - inhaled bronchodilators - Can attempt to taper FiO2 to keep SpO2 >90% - NIPPV QHS and PRN - DVT prophylaxis - will need outpatient f/u of chest imaging - Outpatient PFTs - Will need repeat OSAS workup once stable (reports having a (+) study many years ago but not on [place]) Dr Torrez
--- NOTE | 2018-07-05 14:47 | PN ---
Progress Note, Physician History of Present Illness: OOB in chair Slightly tachypneic at rest on NRB mask Still with cough whitish sputum No hemoptysis No c/o chest pain Afebrile WBC remains elevated Sputum c/s normal debra. legionella ag negative - Current Medication List Current Medications: Active Medications Albuterol Sulfate (Ventolin 0.083% Nebulizer Soln -) 1 amp NEB Q4H PRN PRN Reason: SHORT OF BREATH/WHEEZING Albuterol/Ipratropium (Duoneb -) 1 amp NEB RQID [facility] Last Admin: 07/05/18 11:30 Dose: 1 amp Amlodipine Besylate (Norvasc -) 5 mg PO DAILY [facility] Last Admin: 07/05/18 09:32 Dose: 5 mg Heparin Sodium (Porcine) (Heparin -) 5,000 unit SQ TID [facility] Last Admin: 07/05/18 13:04 Dose: 5,000 unit Levofloxacin (Levaquin 750 Mg Premixed Ivpb -) 750 mg in 150 mls @ 150 mls/hr IVPB DAILY [facility]; Protocol Last Admin: 07/05/18 09:31 Dose: 150 mls/hr Methylprednisolone Sodium Succinate (Solu-Medrol -) 60 mg IVPB Q6H-IV [facility] Last Admin: 07/05/18 09:32 Dose: 60 mg Montelukast Sodium (Singulair -) 10 mg PO HS [facility] Last Admin: 07/04/18 21:50 Dose: 10 mg Ranitidine HCl (Zantac -) 150 mg PO DAILY [facility] Last Admin: 07/05/18 09:32 Dose: 150 mg - Objective Vital Signs: Vital Signs Temperature 97.5 F L 07/05/18 14:00 Pulse Rate 97 H 07/05/18 14:00 Respiratory Rate 20 07/05/18 14:00 Blood Pressure 125/64 07/05/18 14:00 O2 Sat by Pulse Oximetry (%) 97 07/05/18 09:00 Constitutional: Yes: No Distress, Obese Eyes: Yes: Conjunctiva Clear Cardiovascular: Yes: Regular Rate and Rhythm, S1, S2 Respiratory: Yes: Other (few crepitations, bases) Gastrointestinal: Yes: Normal Bowel Sounds, Soft, Abdomen, Obese. No: Tenderness Edema: No Labs: CBC, BMP 07/04/18 06:25 07/04/18 06:25 INR, PTT INR 1.23 (0.83-1.09) H 07/02/18 12:39 Assessment/Plan Community acquired V. atypical LLL pneumonia Continue levaquin l
[2018-07-05] MEDS: MONTELUKAST NA 10 MG TABLET PO SCH (21:32)
[2018-07-06] MEDS: methylPREDNISolone NA SUCC 40 MG/1 ML VIAL IVPB SCH ×3 (02:26→17:13)
[2018-07-06] MEDS: HEPARIN NA (PORCINE) 5,000 UNITS/ML 1ML VIAL SQ SCH ×3 (06:35→21:42)
[2018-07-06 07:11] LABS: BASO % 0.2 % (0-2.0); HEMATOCRIT 43.8 % (35.4-49); HEMOGLOBIN 14.5 GM/dL (11.7-16.9); LYMPH % 6.1 % (8-40); MCH 29.4 pg (25.7-33.7); MCHC 33.2 g/dl (32.0-35.9); MEAN CELL VOLUME 88.8 fl (80-96); MEAN PLT VOLUME 10.2 fl (7.5-11.1); MONO % 3.8 % (3.8-10.2); NEUT % 89.9 % (42.8-82.8); PLATELET COUNT 348 K/MM3 (134-434); RBC 4.94 M/mm3 (4.00-5.60); RDW 13.3 % (11.9-15.9); WHITE BLOOD COUNT 14.2 K/mm3 (4.0-10.0)
[2018-07-06 07:51] LABS: ALBUMIN 2.7 g/dl (3.4-5.0); ALK PHOS 39 U/L (45-117); ANION GAP 8 MMOL/L (8-16); BILIRUBIN,TOTAL 0.4 mg/dL (0.2-1); BLOOD UREA NITROGEN 20 mg/dL (7-18); CALCIUM 8.5 mg/dL (8.5-10.1); CHLORIDE 102 mmol/L (98-107); CO2 29 mmol/L (21-32); CREATININE 0.9 mg/dL (0.55-1.3); GLUCOSE,RANDOM 145 mg/dL (74-106); POTASSIUM 5.1 mmol/L (3.5-5.1); SGOT/AST 13 U/L (15-37); SGPT/ALT 58 U/L (13-61); SODIUM 139 mmol/L (136-145); TOT PROT 6.5 g/dl (6.4-8.2)
[2018-07-06] MEDS: ALBUTEROL SO4 2.5/IPRATROPIUM 0.5 INH SOL 3 ML VIAL.NEB. NEB SCH ×4 (08:37→20:37)
--- NOTE | 2018-07-06 09:20 | PN ---
Progress Note (short form) - Note Progress Note: Chief Complaint: Events noted, notes reviewed, dyspnea persists but improved, denies any chest pain, remains on supplemental O2, hypoxia noted with ambulation History of Present Illness: Seen and examined on telemetry. Events noted, notes reviewed, dyspnea persists but improved, denies any chest pain, remains on supplemental O2, hypoxia noted with ambulation Echocardiography yesterday revealed normal LV size and function with LV EF 65-70 %, normal RV size and function with trace MR and no pulmonary HTN Medications: Current Medications Albuterol Sulfate (Ventolin 0.083% Nebulizer Soln -) 1 amp NEB Q4H PRN PRN Reason: SHORT OF BREATH/WHEEZING Albuterol/Ipratropium (Duoneb -) 1 amp NEB RQID [facility] Last Admin: 07/06/18 08:37 Dose: 1 amp Amlodipine Besylate (Norvasc -) 5 mg PO DAILY [facility] Last Admin: 07/05/18 09:32 Dose: 5 mg Heparin Sodium (Porcine) (Heparin -) 5,000 unit SQ TID [facility] Last Admin: 07/06/18 06:35 Dose: 5,000 unit Levofloxacin (Levaquin 750 Mg Premixed Ivpb -) 750 mg in 150 mls @ 150 mls/hr IVPB DAILY [facility]; Protocol Last Admin: 07/05/18 09:31 Dose: 150 mls/hr Methylprednisolone Sodium Succinate (Solu-Medrol -) 60 mg IVPB Q6H-IV [facility] Last Admin: 07/06/18 02:26 Dose: 60 mg Montelukast Sodium (Singulair -) 10 mg PO HS [facility] Last Admin: 07/05/18 21:32 Dose: 10 mg Ranitidine HCl (Zantac -) 150 mg PO DAILY [facility] Last Admin: 07/05/18 09:32 Dose: 150 mg Review of Systems - Review of Systems Constitutional: no symptoms reported Respiratory: reports Cough as noted above Cardiovascular: as noted above Gastrointestinal: denies Nausea, Vomiting, Diarrhea, Constipation or Abdominal Pain Genitourinary: no symptoms reported Musculoskeletal: no symptoms reported Endocrine: no symptoms reported Vital Signs: Last Vital Signs Temp Pulse Resp BP Pulse Ox 98.1 F 73 20 128/64 99 07/06/18 05:00 07/06/18 05:00 07/06/18 05:00 07/06/18 05:00 07/06/18 00:38 Intake & Output 07/03/18 07/04/18 07/05/18 07/06/18 23:59 23:59 23:59 23:59 Intake Total 1260 750 640 170 Balance 1260 750 640 170 Weight 251 lb 9.6 oz 240 lb 9.6 oz Neck: Supple Negative JVD Respiratory: Bilateral Scattered Rhonchi Diminished Breath Sounds at the Bases but Clinically improved Cardiovascular: S1 S2 Regular Rate and Rhythm Gastrointestinal: Soft Benign Normal Bowel Sounds Ext: Negative Edema Labs: CBC, BMP 07/06/18 06:00 07/06/18 06:00 ABG Results ABG pH 7.43 (7.35-7.45) 07/02/18 12:40 ABG pCO2 at Pt Temp 38.6 mmHg (35-45) 07/02/18 12:40 ABG pO2 at Pt Temp 52.9 mmHg (80-100) L 07/02/18 12:40 ABG HCO3 25.0 meq/L (22-26) 07/02/18 12:40 ABG O2 Sat (Measured) 85.3 % (90-98.9) L 07/02/18 12:40 ABG O2 Content 18.2 % vol (15-22) 07/02/18 12:40 ABG Base Excess 1.3 meq/l (-2-2) 07/02/18 12:40 Assessment/Plan ASSESSMENT: 1. Acute bronchitis/pneumonia with underlying probable reactive airway disease/ to be excluded, resolving clinically 2. Known history of obstructive sleep apnea poor compliance with BiPAP utilization, no evidence of pulmonary hypertension 3. HTN/HCVD 4. Hyperglycemia 5. Pre-renal azotemia 6. Morbid obesity PLAN: 1. Continue Norvasc 2. As outlined in prior notes ideally should be on ACEI or ARBS unless contraindicated 3. Bronchodilators and steroids as per primary team/pulmonary team 4. Antibiotics as per the primary team 5. Echocardiography results reviewed in detail with the patient Miguel Servin M.D.
--- NOTE | 2018-07-06 09:51 | PN ---
Progress Note, Physician Chief Complaint: pt SITTING IN CHAIR,pt feels better on RBRs SOB improved BIPAP in the night time vitals stable, afebrile Blood cul negativep LIEgenella antigen negative Echo report noted - Current Medication List Current Medications: Active Medications Albuterol Sulfate (Ventolin 0.083% Nebulizer Soln -) 1 amp NEB Q4H PRN PRN Reason: SHORT OF BREATH/WHEEZING Albuterol/Ipratropium (Duoneb -) 1 amp NEB RQID [facility] Last Admin: 07/06/18 08:37 Dose: 1 amp Amlodipine Besylate (Norvasc -) 5 mg PO DAILY [facility] Last Admin: 07/05/18 09:32 Dose: 5 mg Heparin Sodium (Porcine) (Heparin -) 5,000 unit SQ TID [facility] Last Admin: 07/06/18 06:35 Dose: 5,000 unit Levofloxacin (Levaquin 750 Mg Premixed Ivpb -) 750 mg in 150 mls @ 150 mls/hr IVPB DAILY [facility]; Protocol Last Admin: 07/05/18 09:31 Dose: 150 mls/hr Methylprednisolone Sodium Succinate (Solu-Medrol -) 60 mg IVPB Q6H-IV [facility] Last Admin: 07/06/18 02:26 Dose: 60 mg Montelukast Sodium (Singulair -) 10 mg PO HS [facility] Last Admin: 07/05/18 21:32 Dose: 10 mg Ranitidine HCl (Zantac -) 150 mg PO DAILY [facility] Last Admin: 07/05/18 09:32 Dose: 150 mg - Objective Vital Signs: Vital Signs Temperature 98.1 F 07/06/18 05:00 Pulse Rate 73 07/06/18 05:00 Respiratory Rate 20 07/06/18 05:00 Blood Pressure 128/64 07/06/18 05:00 O2 Sat by Pulse Oximetry (%) 99 07/06/18 00:38 Constitutional: Yes: No Distress Eyes: Yes: Conjunctiva Clear HENT: Yes: Atraumatic, Normocephalic Neck: Yes: Supple, Trachea Midline Cardiovascular: Yes: Regular Rate and Rhythm Respiratory: Yes: Regular, Diminished, On Nasal O2, Rales, SOB on Exertion Gastrointestinal: Yes: Normal Bowel Sounds, Soft Musculoskeletal: Yes: WNL Extremities: Yes: WNL Edema: No Peripheral Pulses WNL: Yes Neurological: Yes: WNL ...Motor Strength: WNL Psychiatric: Yes: WNL Labs: CBC, BMP 07/06/18 06:00 07/06/18 06:00 INR, PTT INR 1.23 (0.83-1.09) H 07/02/18 12:39 Assessment/Plan Acute hypoxic resp failur likely from acute bronchospasm with? interstitial lung disease Atypical LLL pneumonia Leucocytosis ?steroid induced coming down HTN Obesity Sleep apnoea PLAN Continue IV steroid Bronchodialators Continue antibiotics PULmonary cardiology and ID f/uConsult Monitor Labs Losartan 50 mg po daily
[2018-07-06] MEDS: RANITIDINE HCL 150 MG TABLET (FP) PO SCH (10:03)
[2018-07-06] MEDS: amLODIPine BESYLATE 5 MG TABLET (FP) PO SCH (10:03)
[2018-07-06] MEDS: LOSARTAN POTASSIUM 50 MG TABLET (FP) PO SCH (10:06)
[2018-07-06 10:28] LABS: ACANTHOCYTES 0; ANISOCYTOSIS 0; HELMET CELLS 0; HOWELL-JOLLY BODIES 0; MACROCYTOSIS 0; OVALOCYTE 0; PLATELET ESTIMATE NORMAL; ROULEAU 0; SICKELED CELLS 0; TARGET CELLS 0; TEAR DROP CELLS 0; TOXIC GRANULATION 0
--- NOTE | 2018-07-06 13:11 | PN ---
Progress Note, Physician History of Present Illness: pulmonary alert,less dyspneic ,oob-chair,comfortable . - Current Medication List Current Medications: Active Medications Albuterol Sulfate (Ventolin 0.083% Nebulizer Soln -) 1 amp NEB Q4H PRN PRN Reason: SHORT OF BREATH/WHEEZING Albuterol/Ipratropium (Duoneb -) 1 amp NEB RQID [facility] Last Admin: 07/06/18 08:37 Dose: 1 amp Amlodipine Besylate (Norvasc -) 5 mg PO DAILY [facility] Last Admin: 07/06/18 10:03 Dose: 5 mg Heparin Sodium (Porcine) (Heparin -) 5,000 unit SQ TID [facility] Last Admin: 07/06/18 06:35 Dose: 5,000 unit Levofloxacin (Levaquin 750 Mg Premixed Ivpb -) 750 mg in 150 mls @ 150 mls/hr IVPB DAILY [facility]; Protocol Last Admin: 07/06/18 10:03 Dose: 150 mls/hr Losartan Potassium (Cozaar -) 50 mg PO DAILY [facility] Last Admin: 07/06/18 10:06 Dose: 50 mg Methylprednisolone Sodium Succinate (Solu-Medrol -) 60 mg IVPB Q6H-[facility] Last Admin: 07/06/18 10:02 Dose: 60 mg Montelukast Sodium (Singulair -) 10 mg PO HS [facility] Last Admin: 07/05/18 21:32 Dose: 10 mg Ranitidine HCl (Zantac -) 150 mg PO DAILY [facility] Last Admin: 07/06/18 10:03 Dose: 150 mg - Objective Vital Signs: Vital Signs Temperature 98 F 07/06/18 09:00 Pulse Rate 98 H 07/06/18 09:00 Respiratory Rate 20 07/06/18 09:00 Blood Pressure 114/62 07/06/18 09:00 O2 Sat by Pulse Oximetry (%) 96 07/06/18 09:00 Constitutional: Yes: Calm, Obese Eyes: Yes: WNL HENT: Yes: WNL Neck: Yes: WNL Cardiovascular: Yes: Regular Rate and Rhythm, S1, S2 Respiratory: Yes: Diminished Gastrointestinal: Yes: Normal Bowel Sounds, Soft Extremities: Yes: WNL Edema: Yes Labs: CBC, BMP 07/06/18 06:00 07/06/18 06:00 INR, PTT INR 1.23 (0.83-1.09) H 07/02/18 12:39 Problem List - Problems (1) Sleep apnea Code(s): G47.30 - SLEEP APNEA, UNSPECIFIED (2) Pneumonia Code(s): J18.9 - PNEUMONIA, UNSPECIFIED ORGANISM Qualifiers: Pneumonia type: due to unspecified organism Laterality: left Lung location: lower lobe of lung Qualified Code(s): J18.1 - Lobar pneumonia, unspecified organism (3) Reactive airway disease Code(s): J45.909 - UNSPECIFIED ASTHMA, UNCOMPLICATED (4) Acute hypoxemic respiratory failure Code(s): J96.01 - ACUTE RESPIRATORY FAILURE WITH HYPOXIA Assessment/Plan A/P Acute Hypoxic Respiratory Failure Pneumonia Acute Bronchospasm Obstructive Sleep Apnea HTN - continue antibiotic - continue medrol start taper - inhaled bronchodilators - taper o2 to keep SpO2 >90% - BiPAP as needed - DVT prophylaxis - will need outpt f/u of chest imaging - sleep studies outpatient DR BAILEY
[2018-07-06] MEDS: MONTELUKAST NA 10 MG TABLET PO SCH (21:42)
[2018-07-06] MEDS: ACETAMINOPHEN 325 MG TABLET (FP) PO PRN ×2 (23:23→23:26)
[2018-07-07] MEDS: methylPREDNISolone NA SUCC 40 MG/1 ML VIAL IVPB SCH ×3 (01:19→17:11)
[2018-07-07] MEDS: HEPARIN NA (PORCINE) 5,000 UNITS/ML 1ML VIAL SQ SCH ×3 (05:01→21:26)
[2018-07-07 06:55] LABS: BASO % 0.2 % (0-2.0); HEMATOCRIT 41.5 % (35.4-49); HEMOGLOBIN 14.7 GM/dL (11.7-16.9); LYMPH % 5.3 % (8-40); MCH 30.9 pg (25.7-33.7); MCHC 35.5 g/dl (32.0-35.9); MEAN CELL VOLUME 87.1 fl (80-96); MEAN PLT VOLUME 10.3 fl (7.5-11.1); MONO % 3.6 % (3.8-10.2); NEUT % 90.9 % (42.8-82.8); PLATELET COUNT 333 K/MM3 (134-434); RBC 4.76 M/mm3 (4.00-5.60); RDW 13.4 % (11.9-15.9); WHITE BLOOD COUNT 13.9 K/mm3 (4.0-10.0)
--- NOTE | 2018-07-07 07:14 | PN ---
Progress Note, Physician Chief Complaint: pt SITTING IN CHAIR,pt feels better on RBRs SOB improved BIPAP in the night time vitals stable, afebrile Blood cul negativep LIEgenella antigen negative Echo report noted - Current Medication List Current Medications: Active Medications Acetaminophen (Tylenol -) 650 mg PO HS PRN PRN Reason: PAIN 1-3 Last Admin: 07/06/18 23:23 Dose: 650 mg Albuterol Sulfate (Ventolin 0.083% Nebulizer Soln -) 1 amp NEB Q4H PRN PRN Reason: SHORT OF BREATH/WHEEZING Albuterol/Ipratropium (Duoneb -) 1 amp NEB RQID [facility] Last Admin: 07/06/18 20:37 Dose: 1 amp Amlodipine Besylate (Norvasc -) 5 mg PO DAILY [facility] Last Admin: 07/06/18 10:03 Dose: 5 mg Heparin Sodium (Porcine) (Heparin -) 5,000 unit SQ TID [facility] Last Admin: 07/07/18 05:01 Dose: 5,000 unit Levofloxacin (Levaquin 750 Mg Premixed Ivpb -) 750 mg in 150 mls @ 150 mls/hr IVPB DAILY [facility]; Protocol Last Admin: 07/06/18 10:03 Dose: 150 mls/hr Losartan Potassium (Cozaar -) 50 mg PO DAILY [facility] Last Admin: 07/06/18 10:06 Dose: 50 mg Methylprednisolone Sodium Succinate (Solu-Medrol -) 60 mg IVPB Q8H-IV [facility] Last Admin: 07/07/18 01:19 Dose: 60 mg Montelukast Sodium (Singulair -) 10 mg PO HS [facility] Last Admin: 07/06/18 21:42 Dose: 10 mg Ranitidine HCl (Zantac -) 150 mg PO DAILY [facility] Last Admin: 07/06/18 10:03 Dose: 150 mg - Objective Vital Signs: Vital Signs Temperature 97.8 F 07/07/18 06:00 Pulse Rate 69 07/07/18 06:00 Respiratory Rate 20 07/07/18 06:00 Blood Pressure 121/61 07/07/18 06:00 O2 Sat by Pulse Oximetry (%) 93 L 07/07/18 00:02 Constitutional: Yes: No Distress Eyes: Yes: Conjunctiva Clear HENT: Yes: Atraumatic, Normocephalic Neck: Yes: Supple, Trachea Midline Cardiovascular: Yes: Regular Rate and Rhythm Respiratory: Yes: Diminished, Dullness, On Nasal O2 Gastrointestinal: Yes: Normal Bowel Sounds, Soft Musculoskeletal: Yes: WNL Extremities: Yes: WNL Edema: No Peripheral Pulses WNL: Yes Neurological: Yes: WNL, Alert ...Motor Strength: WNL Psychiatric: Yes: WNL Labs: INR, PTT INR 1.23 (0.83-1.09) H 07/02/18 12:39 Assessment/Plan Acute hypoxic resp failur likely from acute bronchospasm with? interstitial lung disease Atypical LLL pneumonia Leucocytosis ?steroid induced coming down HTN Obesity Sleep apnoea PLAN Continue IV steroid Bronchodialators Continue antibiotics PULmonary cardiology and ID f/uConsult Monitor Labs Losartan 50 mg po daily
[2018-07-07 07:49] LABS: ALBUMIN 2.6 g/dl (3.4-5.0); ALK PHOS 36 U/L (45-117); ANION GAP 6 MMOL/L (8-16); BILIRUBIN,TOTAL 0.6 mg/dL (0.2-1); BLOOD UREA NITROGEN 18 mg/dL (7-18); CALCIUM 8.3 mg/dL (8.5-10.1); CHLORIDE 100 mmol/L (98-107); CO2 30 mmol/L (21-32); CREATININE 0.8 mg/dL (0.55-1.3); GLUCOSE,RANDOM 136 mg/dL (74-106); POTASSIUM 4.8 mmol/L (3.5-5.1); SGOT/AST 14 U/L (15-37); SGPT/ALT 53 U/L (13-61); SODIUM 136 mmol/L (136-145); TOT PROT 6.1 g/dl (6.4-8.2)
[2018-07-07] MEDS: ALBUTEROL SO4 2.5/IPRATROPIUM 0.5 INH SOL 3 ML VIAL.NEB. NEB SCH ×2 (08:12→15:35)
[2018-07-07] MEDS ORDERED: PT OWN MED DRAWER 7, Y5N ONE ×2 (08:42→20:49)
[2018-07-07] MEDS: amLODIPine BESYLATE 5 MG TABLET (FP) PO SCH (09:45)
[2018-07-07] MEDS: RANITIDINE HCL 150 MG TABLET (FP) PO SCH (09:45)
[2018-07-07] MEDS: LOSARTAN POTASSIUM 50 MG TABLET (FP) PO SCH (09:45)
--- NOTE | 2018-07-07 10:54 | PN ---
Progress Note, Physician History of Present Illness: OOB in chair Reports breathing improved Appears comfortable on nasal cannula O2 4L Desaturates at night Less cough whitish sputum No hemoptysis No c/o chest pain Afebrile WBC remains slightly elevated on steroids Sputum c/s normal debra. legionella ag negative - Current Medication List Current Medications: Active Medications Acetaminophen (Tylenol -) 650 mg PO HS PRN PRN Reason: PAIN 1-3 Last Admin: 07/06/18 23:23 Dose: 650 mg Albuterol Sulfate (Ventolin 0.083% Nebulizer Soln -) 1 amp NEB Q4H PRN PRN Reason: SHORT OF BREATH/WHEEZING Albuterol/Ipratropium (Duoneb -) 1 amp NEB RQID [facility] Last Admin: 07/07/18 08:12 Dose: 1 amp Amlodipine Besylate (Norvasc -) 5 mg PO DAILY [facility] Last Admin: 07/07/18 09:45 Dose: 5 mg Heparin Sodium (Porcine) (Heparin -) 5,000 unit SQ TID [facility] Last Admin: 07/07/18 05:01 Dose: 5,000 unit Levofloxacin (Levaquin 750 Mg Premixed Ivpb -) 750 mg in 150 mls @ 150 mls/hr IVPB DAILY [facility]; Protocol Last Admin: 07/07/18 09:44 Dose: 150 mls/hr Losartan Potassium (Cozaar -) 50 mg PO DAILY [facility] Last Admin: 07/07/18 09:45 Dose: 50 mg Methylprednisolone Sodium Succinate (Solu-Medrol -) 60 mg IVPB Q8H-IV [facility] Last Admin: 07/07/18 09:45 Dose: 60 mg Montelukast Sodium (Singulair -) 10 mg PO HS [facility] Last Admin: 07/06/18 21:42 Dose: 10 mg Ranitidine HCl (Zantac -) 150 mg PO DAILY [facility] Last Admin: 07/07/18 09:45 Dose: 150 mg - Objective Vital Signs: Vital Signs Temperature 98 F 07/07/18 08:44 Pulse Rate 92 H 07/07/18 08:44 Respiratory Rate 20 07/07/18 08:44 Blood Pressure 133/69 07/07/18 08:44 O2 Sat by Pulse Oximetry (%) 93 L 07/07/18 00:02 Constitutional: Yes: No Distress Eyes: Yes: Conjunctiva Clear Cardiovascular: Yes: Regular Rate and Rhythm, S1, S2 Respiratory: Yes: CTA Bilaterally Gastrointestinal: Yes: Normal Bowel Sounds, Soft, Abdomen, Obese. No: Tenderness Extremities: No: Calf Tenderness Edema: No Labs: CBC, BMP 07/07/18 06:00 07/07/18 06:00 INR, PTT INR 1.23 (0.83-1.09) H 07/02/18 12:39 Assessment/Plan Community acquired V. atypical LLL pneumonia Hypoxemic resp failure Leukocytosis Continue levaquin l
--- NOTE | 2018-07-07 14:13 | PN ---
Progress Note, Physician History of Present Illness: Dyspnea, cough and wheeze improving with treatment. - Current Medication List Current Medications: Active Medications Acetaminophen (Tylenol -) 650 mg PO HS PRN PRN Reason: PAIN 1-3 Last Admin: 07/06/18 23:23 Dose: 650 mg Albuterol Sulfate (Ventolin 0.083% Nebulizer Soln -) 1 amp NEB Q4H PRN PRN Reason: SHORT OF BREATH/WHEEZING Albuterol/Ipratropium (Duoneb -) 1 amp NEB RQID [facility] Last Admin: 07/07/18 08:12 Dose: 1 amp Amlodipine Besylate (Norvasc -) 5 mg PO DAILY [facility] Last Admin: 07/07/18 09:45 Dose: 5 mg Heparin Sodium (Porcine) (Heparin -) 5,000 unit SQ TID [facility] Last Admin: 07/07/18 05:01 Dose: 5,000 unit Levofloxacin (Levaquin 750 Mg Premixed Ivpb -) 750 mg in 150 mls @ 150 mls/hr IVPB DAILY [facility]; Protocol Last Admin: 07/07/18 09:44 Dose: 150 mls/hr Losartan Potassium (Cozaar -) 50 mg PO DAILY [facility] Last Admin: 07/07/18 09:45 Dose: 50 mg Methylprednisolone Sodium Succinate (Solu-Medrol -) 60 mg IVPB Q8H-IV [facility] Last Admin: 07/07/18 09:45 Dose: 60 mg Montelukast Sodium (Singulair -) 10 mg PO HS [facility] Last Admin: 07/06/18 21:42 Dose: 10 mg Ranitidine HCl (Zantac -) 150 mg PO DAILY [facility] Last Admin: 07/07/18 09:45 Dose: 150 mg - Objective Vital Signs: Vital Signs Temperature 98 F 07/07/18 08:44 Pulse Rate 92 H 07/07/18 08:44 Respiratory Rate 20 07/07/18 08:44 Blood Pressure 133/69 07/07/18 08:44 O2 Sat by Pulse Oximetry (%) 93 L 07/07/18 09:00 Constitutional: Yes: No Distress, Calm Neck: Yes: Supple Cardiovascular: Yes: Regular Rate and Rhythm Respiratory: Yes: Regular, Diminished, On Nasal O2 Gastrointestinal: Yes: Normal Bowel Sounds, Soft Edema: No Labs: CBC, BMP 07/07/18 06:00 07/07/18 06:00 INR, PTT INR 1.23 (0.83-1.09) H 07/02/18 12:39 - ....Imaging EKG: Report Reviewed (Tele: ) Problem List - Problems (1) Pneumonia Code(s): J18.9 - PNEUMONIA, UNSPECIFIED ORGANISM Qualifiers: Pneumonia type: due to unspecified organism Laterality: left Lung location: lower lobe of lung Qualified Code(s): J18.1 - Lobar pneumonia, unspecified organism (2) Reactive airway disease Code(s): J45.909 - UNSPECIFIED ASTHMA, UNCOMPLICATED Assessment/Plan 07/05/2018 Echocardiography yesterday revealed normal LV size and function with LV EF 65-70%, normal RV size and function with trace MR and no pulmonary HTN 1. Acute Hypoxic Respiratory Failure / acute bronchitis with community acquired V. atypical LLL pneumonia 2. Diastolic LV dysfunction with clinical class 0 NYHA classification LV failure , to be excluded, await echocardiography 3. Known history of obstructive sleep apnea poor compliance with BiPAP utilization, cannot exclude pulmonary hypertension, await echocardiography 4. HTN/HCVD 5. Morbid obesity with OSAS 6. Pre-renal azotemia PLAN: 1. Change Norvasc 5 qd to cardizem CD 120 qd and losartan 50 qd 2. Bronchodilators, O2, Bipap as needed, Singulair and IV steroid taper with GI protection as per primary team/pulmonary team 3. Antibiotics as per the primary team 4. PSG and PFTs as outpt, DVT and GI prophylaxis
--- NOTE | 2018-07-07 14:14 | PN ---
Progress Note, Physician History of Present Illness: pulmonary alert,feeling better,sob improving. remains hypoxic on ra - Current Medication List Current Medications: Active Medications Acetaminophen (Tylenol -) 650 mg PO HS PRN PRN Reason: PAIN 1-3 Last Admin: 07/06/18 23:23 Dose: 650 mg Albuterol Sulfate (Ventolin 0.083% Nebulizer Soln -) 1 amp NEB Q4H PRN PRN Reason: SHORT OF BREATH/WHEEZING Albuterol/Ipratropium (Duoneb -) 1 amp NEB RQID [facility] Last Admin: 07/07/18 08:12 Dose: 1 amp Amlodipine Besylate (Norvasc -) 5 mg PO DAILY [facility] Last Admin: 07/07/18 09:45 Dose: 5 mg Heparin Sodium (Porcine) (Heparin -) 5,000 unit SQ TID [facility] Last Admin: 07/07/18 05:01 Dose: 5,000 unit Levofloxacin (Levaquin 750 Mg Premixed Ivpb -) 750 mg in 150 mls @ 150 mls/hr IVPB DAILY [facility]; Protocol Last Admin: 07/07/18 09:44 Dose: 150 mls/hr Losartan Potassium (Cozaar -) 50 mg PO DAILY [facility] Last Admin: 07/07/18 09:45 Dose: 50 mg Methylprednisolone Sodium Succinate (Solu-Medrol -) 60 mg IVPB Q8H-IV [facility] Last Admin: 07/07/18 09:45 Dose: 60 mg Montelukast Sodium (Singulair -) 10 mg PO HS [facility] Last Admin: 07/06/18 21:42 Dose: 10 mg Ranitidine HCl (Zantac -) 150 mg PO DAILY [facility] Last Admin: 07/07/18 09:45 Dose: 150 mg - Objective Vital Signs: Vital Signs Temperature 98 F 07/07/18 08:44 Pulse Rate 92 H 07/07/18 08:44 Respiratory Rate 20 07/07/18 08:44 Blood Pressure 133/69 07/07/18 08:44 O2 Sat by Pulse Oximetry (%) 93 L 07/07/18 09:00 Constitutional: Yes: Calm, Obese Eyes: Yes: WNL HENT: Yes: WNL Neck: Yes: WNL Cardiovascular: Yes: Regular Rate and Rhythm, S1, S2 Respiratory: Yes: Diminished Gastrointestinal: Yes: Normal Bowel Sounds, Soft Extremities: Yes: WNL Edema: No Labs: CBC, BMP 07/07/18 06:00 07/07/18 06:00 INR, PTT INR 1.23 (0.83-1.09) H 07/02/18 12:39 Problem List - Problems (1) Sleep apnea Code(s): G47.30 - SLEEP APNEA, UNSPECIFIED (2) Pneumonia Code(s): J18.9 - PNEUMONIA, UNSPECIFIED ORGANISM Qualifiers: Pneumonia type: due to unspecified organism Laterality: left Lung location: lower lobe of lung Qualified Code(s): J18.1 - Lobar pneumonia, unspecified organism (3) Reactive airway disease Code(s): J45.909 - UNSPECIFIED ASTHMA, UNCOMPLICATED (4) Acute hypoxemic respiratory failure Code(s): J96.01 - ACUTE RESPIRATORY FAILURE WITH HYPOXIA Assessment/Plan A/P Acute Hypoxic Respiratory Failure alowly improving Pneumonia Acute Bronchospasm Obstructive Sleep Apnea HTN - continue antibiotics - continue medrol start taper - inhaled bronchodilators - taper o2 to keep SpO2 >90% - BiPAP as needed - DVT prophylaxis - will need outpt f/u of chest imaging - sleep studies outpatient DR BAILEY
[2018-07-07] MEDS: MONTELUKAST NA 10 MG TABLET PO SCH (21:27)
[2018-07-08] MEDS: methylPREDNISolone NA SUCC 40 MG/1 ML VIAL IVPB SCH ×3 (02:50→17:44)
[2018-07-08] MEDS: HEPARIN NA (PORCINE) 5,000 UNITS/ML 1ML VIAL SQ SCH ×3 (05:50→21:12)
--- NOTE | 2018-07-08 09:41 | PN ---
Progress Note, Physician Chief Complaint: pt SITTING IN CHAIR,pt feels better afebrile feels better on RBRs SOB improved BIPAP in the night time Blood cul negativep LIEgenella antigen negative Echo report noted - Current Medication List Current Medications: Active Medications Acetaminophen (Tylenol -) 650 mg PO HS PRN PRN Reason: PAIN 1-3 Last Admin: 07/06/18 23:23 Dose: 650 mg Diltiazem HCl (Cardizem Cd -) 120 mg PO DAILY [facility] Heparin Sodium (Porcine) (Heparin -) 5,000 unit SQ TID [facility] Last Admin: 07/08/18 05:50 Dose: 5,000 unit Levofloxacin (Levaquin 750 Mg Premixed Ivpb -) 750 mg in 150 mls @ 150 mls/hr IVPB DAILY [facility]; Protocol Last Admin: 07/07/18 09:44 Dose: 150 mls/hr Losartan Potassium (Cozaar -) 50 mg PO DAILY [facility] Last Admin: 07/07/18 09:45 Dose: 50 mg Methylprednisolone Sodium Succinate (Solu-Medrol -) 60 mg IVPB Q8H-IV [facility] Last Admin: 07/08/18 02:50 Dose: 60 mg Montelukast Sodium (Singulair -) 10 mg PO HS [facility] Last Admin: 07/07/18 21:27 Dose: 10 mg Ranitidine HCl (Zantac -) 150 mg PO DAILY [facility] Last Admin: 07/07/18 09:45 Dose: 150 mg - Objective Vital Signs: Vital Signs Temperature 97.7 F 07/08/18 06:00 Pulse Rate 82 07/08/18 02:00 Respiratory Rate 18 07/08/18 06:00 Blood Pressure 107/56 L 07/08/18 06:00 O2 Sat by Pulse Oximetry (%) 100 07/07/18 23:15 Constitutional: Yes: No Distress Eyes: Yes: Conjunctiva Clear HENT: Yes: Atraumatic, Normocephalic Neck: Yes: Supple Cardiovascular: Yes: Regular Rate and Rhythm Respiratory: Yes: On Nasal O2, Rales, SOB on Exertion Gastrointestinal: Yes: Normal Bowel Sounds, Soft Musculoskeletal: Yes: WNL Extremities: Yes: WNL Edema: No Peripheral Pulses WNL: Yes Neurological: Yes: WNL, Alert ...Motor Strength: WNL Psychiatric: Yes: WNL, Alert Labs: CBC, BMP 07/07/18 06:00 07/07/18 06:00 INR, PTT INR 1.23 (0.83-1.09) H 07/02/18 12:39 Assessment/Plan Acute hypoxic resp failur likely from acute bronchospasm with? interstitial lung disease Atypical LLL pneumonia Leucocytosis ?steroid induced coming down HTN Obesity Sleep apnoea PLAN Continue IV steroid tapering dose Bronchodialators Continue antibiotics PULmonary cardiology and ID f/uConsult Monitor Labs
[2018-07-08] MEDS: LOSARTAN POTASSIUM 50 MG TABLET (FP) PO SCH (10:21)
[2018-07-08] MEDS: RANITIDINE HCL 150 MG TABLET (FP) PO SCH (10:21)
--- NOTE | 2018-07-08 11:04 | PN ---
Progress Note, Physician History of Present Illness: Dyspnea, cough and wheeze improving with treatment. Tachycardia improved after change to Cardizem CD. - Current Medication List Current Medications: Active Medications Acetaminophen (Tylenol -) 650 mg PO HS PRN PRN Reason: PAIN 1-3 Last Admin: 07/06/18 23:23 Dose: 650 mg Diltiazem HCl (Cardizem Cd -) 120 mg PO DAILY [facility] Last Admin: 07/08/18 10:21 Dose: 120 mg Heparin Sodium (Porcine) (Heparin -) 5,000 unit SQ TID [facility] Last Admin: 07/08/18 05:50 Dose: 5,000 unit Levofloxacin (Levaquin 750 Mg Premixed Ivpb -) 750 mg in 150 mls @ 150 mls/hr IVPB DAILY [facility]; Protocol Last Admin: 07/08/18 10:21 Dose: 150 mls/hr Losartan Potassium (Cozaar -) 50 mg PO DAILY [facility] Last Admin: 07/08/18 10:21 Dose: 50 mg Methylprednisolone Sodium Succinate (Solu-Medrol -) 60 mg IVPB Q8H-IV [facility] Last Admin: 07/08/18 10:20 Dose: 60 mg Montelukast Sodium (Singulair -) 10 mg PO HS [facility] Last Admin: 07/07/18 21:27 Dose: 10 mg Ranitidine HCl (Zantac -) 150 mg PO DAILY [facility] Last Admin: 07/08/18 10:21 Dose: 150 mg - Objective Vital Signs: Vital Signs Temperature 98.3 F 07/08/18 10:00 Pulse Rate 92 H 07/08/18 10:00 Respiratory Rate 20 07/08/18 10:00 Blood Pressure 129/59 L 07/08/18 10:00 O2 Sat by Pulse Oximetry (%) 100 07/07/18 23:15 Constitutional: Yes: No Distress, Calm Neck: Yes: Supple Cardiovascular: Yes: Regular Rate and Rhythm Respiratory: Yes: Regular, Diminished, On Nasal O2 Gastrointestinal: Yes: Normal Bowel Sounds, Soft, Abdomen, Obese Edema: No Labs: CBC, BMP 07/07/18 06:00 07/07/18 06:00 INR, PTT INR 1.23 (0.83-1.09) H 07/02/18 12:39 - ....Imaging EKG: Report Reviewed (Tele: SR) Problem List - Problems (1) Pneumonia Code(s): J18.9 - PNEUMONIA, UNSPECIFIED ORGANISM Qualifiers: Pneumonia type: due to unspecified organism Laterality: left Lung location: lower lobe of lung Qualified Code(s): J18.1 - Lobar pneumonia, unspecified organism (2) Reactive airway disease Code(s): J45.909 - UNSPECIFIED ASTHMA, UNCOMPLICATED Assessment/Plan 07/05/2018 Echocardiography yesterday revealed normal LV size and function with LV EF 65-70%, normal RV size and function with trace MR and no pulmonary HTN 1. Acute Hypoxic Respiratory Failure / acute bronchitis with community acquired V. atypical LLL pneumonia 2. Diastolic LV dysfunction with clinical class 0 NYHA classification LV failure , to be excluded, await echocardiography 3. Known history of obstructive sleep apnea poor compliance with BiPAP utilization, cannot exclude pulmonary hypertension, await echocardiography 4. HTN/HCVD 5. Morbid obesity with OSAS 6. Sinus tachycardia PLAN: 1. Continue cardizem CD 120 qd and losartan 50 qd 2. Bronchodilators, O2, Bipap as needed, Singulair and IV steroid taper with GI protection as per primary team/pulmonary team 3. Antibiotics as per the primary team 4. PSG and PFTs as outpt, DVT and GI prophylaxis
--- NOTE | 2018-07-08 12:52 | PN ---
Progress Note (short form) - Note Progress Note: OOB to chair. ON NC O2. Reports desaturating to 88% when off. Continued subjective improvement over the last few days. Used NIPPV with benefit overnight. Nonproductive cough. Intake & Output 07/05/18 07/06/18 07/07/18 07/08/18 23:59 23:59 23:59 23:59 Intake Total 640 410 840 820 Balance 640 410 840 820 Weight 240 lb 9.6 oz 256 lb Last Vital Signs Temp Pulse Resp BP Pulse Ox 98.3 F 92 H 20 129/59 L 100 07/08/18 10:00 07/08/18 10:00 07/08/18 10:00 07/08/18 10:00 07/07/18 23:15 Active Medications Acetaminophen (Tylenol -) 650 mg PO HS PRN PRN Reason: PAIN 1-3 Last Admin: 07/06/18 23:23 Dose: 650 mg Diltiazem HCl (Cardizem Cd -) 120 mg PO DAILY [facility] Last Admin: 07/08/18 10:21 Dose: 120 mg Heparin Sodium (Porcine) (Heparin -) 5,000 unit SQ TID [facility] Last Admin: 07/08/18 05:50 Dose: 5,000 unit Levofloxacin (Levaquin 750 Mg Premixed Ivpb -) 750 mg in 150 mls @ 150 mls/hr IVPB DAILY [facility]; Protocol Last Admin: 07/08/18 10:21 Dose: 150 mls/hr Losartan Potassium (Cozaar -) 50 mg PO DAILY [facility] Last Admin: 07/08/18 10:21 Dose: 50 mg Methylprednisolone Sodium Succinate (Solu-Medrol -) 60 mg IVPB Q8H-IV [facility] Last Admin: 07/08/18 10:20 Dose: 60 mg Montelukast Sodium (Singulair -) 10 mg PO HS [facility] Last Admin: 07/07/18 21:27 Dose: 10 mg Ranitidine HCl (Zantac -) 150 mg PO DAILY [facility] Last Admin: 07/08/18 10:21 Dose: 150 mg Gen: Awake and alert, less tachypneic at rest Heart: RRR Lung: decreased breath sounds at the bases, few scattered rhonchi, No wheeze Abd: soft, nontender Ext: no edema Laboratory Results - last 24 hr 07/08/18 06:09 POC Glucometer 134 A/P Acute Hypoxic Respiratory Failure (?) Hypersensitivity Pneumonitis Pneumonia Acute Bronchospasm Obstructive Sleep Apnea HTN - ABX - continue medrol at current dose - inhaled bronchodilators - NC O2 as tolerated - NIPPV QHS and PRN - DVT prophylaxis - will need outpatient f/u of chest imaging - Outpatient PFTs - Will need repeat OSAS workup once stable (reports having a (+) study many years ago but not on [place]) Dr Torrez
[2018-07-08] MEDS: MONTELUKAST NA 10 MG TABLET PO SCH (21:12)
[2018-07-09] MEDS: methylPREDNISolone NA SUCC 40 MG/1 ML VIAL IVPB SCH ×3 (01:37→17:48)
[2018-07-09] MEDS: HEPARIN NA (PORCINE) 5,000 UNITS/ML 1ML VIAL SQ SCH ×2 (05:08→14:40)
--- NOTE | 2018-07-09 09:40 | PN ---
Progress Note, Physician Chief Complaint: pt SITTING IN CHAIR,pt feels better afebrile feels better,pt desaturating while OFF oxygen SOB improved BIPAP in the night time Blood cul negativep LIEgenella antigen negative Echo report noted - Current Medication List Current Medications: Active Medications Acetaminophen (Tylenol -) 650 mg PO HS PRN PRN Reason: PAIN 1-3 Last Admin: 07/06/18 23:23 Dose: 650 mg Diltiazem HCl (Cardizem Cd -) 120 mg PO DAILY [facility] Last Admin: 07/08/18 10:21 Dose: 120 mg Heparin Sodium (Porcine) (Heparin -) 5,000 unit SQ TID [facility] Last Admin: 07/09/18 05:08 Dose: 5,000 unit Levofloxacin (Levaquin 750 Mg Premixed Ivpb -) 750 mg in 150 mls @ 150 mls/hr IVPB DAILY [facility]; Protocol Last Admin: 07/08/18 10:21 Dose: 150 mls/hr Losartan Potassium (Cozaar -) 50 mg PO DAILY [facility] Last Admin: 07/08/18 10:21 Dose: 50 mg Methylprednisolone Sodium Succinate (Solu-Medrol -) 60 mg IVPB Q8H-IV [facility] Last Admin: 07/09/18 01:37 Dose: 60 mg Montelukast Sodium (Singulair -) 10 mg PO HS [facility] Last Admin: 07/08/18 21:12 Dose: 10 mg Ranitidine HCl (Zantac -) 150 mg PO DAILY [facility] Last Admin: 07/08/18 10:21 Dose: 150 mg - Objective Vital Signs: Vital Signs Temperature 98.1 F 07/09/18 06:00 Pulse Rate 66 07/09/18 06:00 Respiratory Rate 18 07/09/18 06:00 Blood Pressure 119/61 07/09/18 06:00 O2 Sat by Pulse Oximetry (%) 100 07/08/18 21:29 Constitutional: Yes: No Distress Eyes: Yes: Conjunctiva Clear HENT: Yes: Atraumatic Neck: Yes: Supple, Trachea Midline Cardiovascular: Yes: Regular Rate and Rhythm Respiratory: Yes: Cough, Diminished, On Nasal O2, Rhonchi Gastrointestinal: Yes: Normal Bowel Sounds, Soft Musculoskeletal: Yes: WNL Extremities: Yes: WNL Edema: No Peripheral Pulses WNL: Yes Neurological: Yes: WNL, Alert ...Motor Strength: WNL Psychiatric: Yes: WNL, Alert Labs: CBC, BMP 07/07/18 06:00 07/07/18 06:00 INR, PTT INR 1.23 (0.83-1.09) H 07/02/18 12:39 Assessment/Plan Acute hypoxic resp failur likely from acute bronchospasm with? interstitial lung disease ?hypersensitivity pneumonitis Atypical LLL pneumonia Leucocytosis ?steroid induced coming down HTN Obesity Sleep apnoea PLAN Continue IV steroid tapering dose Bronchodialators Continue antibiotics PULmonary cardiology and ID f/uConsult Monitor Labs
[2018-07-09] MEDS: RANITIDINE HCL 150 MG TABLET (FP) PO SCH (10:16)
[2018-07-09] MEDS: LOSARTAN POTASSIUM 50 MG TABLET (FP) PO SCH (10:16)
[2018-07-09 12:36] VITALS: BMI 39.7
--- NOTE | 2018-07-09 15:00 | PN ---
Progress Note, Physician History of Present Illness: Dyspnea, cough and wheeze improving with treatment. Tachycardia improved after change to Cardizem CD. - Current Medication List Current Medications: Active Medications Acetaminophen (Tylenol -) 650 mg PO HS PRN PRN Reason: PAIN 1-3 Last Admin: 07/06/18 23:23 Dose: 650 mg Diltiazem HCl (Cardizem Cd -) 120 mg PO DAILY [facility] Last Admin: 07/09/18 10:15 Dose: 120 mg Heparin Sodium (Porcine) (Heparin -) 5,000 unit SQ TID [facility] Last Admin: 07/09/18 14:40 Dose: 5,000 unit Levofloxacin (Levaquin 750 Mg Premixed Ivpb -) 750 mg in 150 mls @ 150 mls/hr IVPB DAILY [facility]; Protocol Last Admin: 07/09/18 10:17 Dose: 150 mls/hr Losartan Potassium (Cozaar -) 50 mg PO DAILY [facility] Last Admin: 07/09/18 10:16 Dose: 50 mg Methylprednisolone Sodium Succinate (Solu-Medrol -) 20 mg IVPB Q8H-IV [facility] Montelukast Sodium (Singulair -) 10 mg PO HS [facility] Last Admin: 07/08/18 21:12 Dose: 10 mg Ranitidine HCl (Zantac -) 150 mg PO DAILY [facility] Last Admin: 07/09/18 10:16 Dose: 150 mg - Objective Vital Signs: Vital Signs Temperature 97.9 F 07/09/18 14:00 Pulse Rate 88 07/09/18 14:00 Respiratory Rate 18 07/09/18 14:00 Blood Pressure 120/63 07/09/18 14:00 O2 Sat by Pulse Oximetry (%) 100 07/08/18 21:29 Constitutional: Yes: No Distress, Calm Neck: Yes: Supple Cardiovascular: Yes: Regular Rate and Rhythm Respiratory: Yes: Regular, CTA Bilaterally Gastrointestinal: Yes: Normal Bowel Sounds, Soft Edema: No Labs: CBC, BMP 07/07/18 06:00 07/07/18 06:00 INR, PTT INR 1.23 (0.83-1.09) H 07/02/18 12:39 Problem List - Problems (1) Pneumonia Code(s): J18.9 - PNEUMONIA, UNSPECIFIED ORGANISM Qualifiers: Pneumonia type: due to unspecified organism Laterality: left Lung location: lower lobe of lung Qualified Code(s): J18.1 - Lobar pneumonia, unspecified organism (2) Reactive airway disease Code(s): J45.909 - UNSPECIFIED ASTHMA, UNCOMPLICATED Assessment/Plan 07/05/2018 Echocardiography yesterday revealed normal LV size and function with LV EF 65-70%, normal RV size and function with trace MR and no pulmonary HTN 1. Acute Hypoxic Respiratory Failure / acute bronchitis with community acquired V. atypical LLL pneumonia 2. Diastolic LV dysfunction with clinical class 0 NYHA classification LV failure , to be excluded, await echocardiography 3. Known history of obstructive sleep apnea poor compliance with BiPAP utilization, cannot exclude pulmonary hypertension, await echocardiography 4. HTN/HCVD 5. Morbid obesity with OSAS 6. Sinus tachycardia PLAN: 1. Continue cardizem CD 120 qd and losartan 50 qd 2. Bronchodilators, O2, Bipap as needed, Singulair and oral steroid taper with GI protection as per primary team/pulmonary team 3. Antibiotics as per the primary team 4. PSG and PFTs as outpt, DVT and GI prophylaxis
--- NOTE | 2018-07-09 16:19 | PN ---
Progress Note, Physician History of Present Illness: OOB in chair Reports breathing improved Appears comfortable at rest on room air Less cough Afebrile WBC remains slightly elevated on steroids Sputum c/s normal debra. legionella ag negative - Current Medication List Current Medications: Active Medications Acetaminophen (Tylenol -) 650 mg PO HS PRN PRN Reason: PAIN 1-3 Last Admin: 07/06/18 23:23 Dose: 650 mg Diltiazem HCl (Cardizem Cd -) 120 mg PO DAILY [facility] Last Admin: 07/09/18 10:15 Dose: 120 mg Guaifenesin (Robitussin -) 10 ml PO Q8H PRN PRN Reason: COUGH Heparin Sodium (Porcine) (Heparin -) 5,000 unit SQ TID [facility] Last Admin: 07/09/18 14:40 Dose: 5,000 unit Levofloxacin (Levaquin 750 Mg Premixed Ivpb -) 750 mg in 150 mls @ 150 mls/hr IVPB DAILY [facility]; Protocol Last Admin: 07/09/18 10:17 Dose: 150 mls/hr Losartan Potassium (Cozaar -) 50 mg PO DAILY [facility] Last Admin: 07/09/18 10:16 Dose: 50 mg Methylprednisolone Sodium Succinate (Solu-Medrol -) 20 mg IVPB Q8H-IV [facility] Montelukast Sodium (Singulair -) 10 mg PO HS [facility] Last Admin: 07/08/18 21:12 Dose: 10 mg Ranitidine HCl (Zantac -) 150 mg PO DAILY [facility] Last Admin: 07/09/18 10:16 Dose: 150 mg - Objective Vital Signs: Vital Signs Temperature 97.9 F 07/09/18 14:00 Pulse Rate 88 07/09/18 14:00 Respiratory Rate 18 07/09/18 14:00 Blood Pressure 120/63 07/09/18 14:00 O2 Sat by Pulse Oximetry (%) 100 07/08/18 21:29 Constitutional: Yes: No Distress, Obese Eyes: Yes: Conjunctiva Clear Cardiovascular: Yes: Regular Rate and Rhythm, S1, S2 Respiratory: Yes: CTA Bilaterally Gastrointestinal: Yes: Normal Bowel Sounds, Soft, Abdomen, Obese. No: Tenderness Genitourinary: No: CVA Tenderness - Left, CVA Tenderness - Right Labs: CBC, BMP 07/07/18 06:00 07/07/18 06:00 INR, PTT INR 1.23 (0.83-1.09) H 07/02/18 12:39 Assessment/Plan Community acquired V. atypical LLL pneumonia Hypoxemic resp failure Leukocytosis likely steroid-induced D/C IV levaquin Levaquin 750mg po qd x3d l
[2018-07-09] MEDS: guaiFENesin 200 MG/10 ML 10 ML UNIT-DOSE CUPS PO PRN (18:54)
[2018-07-09] MEDS: MONTELUKAST NA 10 MG TABLET PO SCH (21:23)
[2018-07-10] MEDS: methylPREDNISolone NA SUCC 40 MG/1 ML VIAL IVPB SCH ×3 (01:54→17:25)
[2018-07-10] MEDS ORDERED: PT OWN MED DRAWER 7, Y5N ONE ×2 (05:23→09:00)
[2018-07-10] MEDS: levoFLOXacin 750 MG TABLET PO SCH (05:25)
[2018-07-10] MEDS: guaiFENesin 200 MG/10 ML 10 ML UNIT-DOSE CUPS PO PRN ×2 (05:28→21:43)
[2018-07-10 07:41] LABS: BASO % 0.1 % (0-2.0); HEMATOCRIT 47.5 % (35.4-49); HEMOGLOBIN 15.2 GM/dL (11.7-16.9); LYMPH % 5.6 % (8-40); MCH 27.9 pg (25.7-33.7); MCHC 32.1 g/dl (32.0-35.9); MEAN CELL VOLUME 86.8 fl (80-96); MEAN PLT VOLUME 10.3 fl (7.5-11.1); MONO % 3.9 % (3.8-10.2); NEUT % 90.4 % (42.8-82.8); PLATELET COUNT 319 K/MM3 (134-434); RBC 5.47 M/mm3 (4.00-5.60); RDW 13.5 % (11.9-15.9); WHITE BLOOD COUNT 17.6 K/mm3 (4.0-10.0)
[2018-07-10 08:13] LABS: ALBUMIN 2.6 g/dl (3.4-5.0); ALK PHOS 40 U/L (45-117); ANION GAP 8 MMOL/L (8-16); BILIRUBIN,TOTAL 0.9 mg/dL (0.2-1); BLOOD UREA NITROGEN 26 mg/dL (7-18); CALCIUM 8.4 mg/dL (8.5-10.1); CHLORIDE 99 mmol/L (98-107); CO2 29 mmol/L (21-32); CREATININE 0.9 mg/dL (0.55-1.3); GLUCOSE,RANDOM 124 mg/dL (74-106); POTASSIUM 4.8 mmol/L (3.5-5.1); SGOT/AST 15 U/L (15-37); SGPT/ALT 65 U/L (13-61); SODIUM 136 mmol/L (136-145); TOT PROT 5.9 g/dl (6.4-8.2)
[2018-07-10] MEDS: LOSARTAN POTASSIUM 50 MG TABLET (FP) PO SCH (09:06)
[2018-07-10] MEDS: RANITIDINE HCL 150 MG TABLET (FP) PO SCH (09:06)
--- NOTE | 2018-07-10 09:36 | PN ---
Progress Note, Physician Chief Complaint: pt SITTING IN CHAIR,pt feels better afebrile feels better SOB improved BIPAP in the night time Blood cul negativep LIEgenella antigen negative Echo report noted leucocytosis,?steroid induced - Current Medication List Current Medications: Active Medications Acetaminophen (Tylenol -) 650 mg PO HS PRN PRN Reason: PAIN 1-3 Last Admin: 07/06/18 23:23 Dose: 650 mg Diltiazem HCl (Cardizem Cd -) 120 mg PO DAILY [facility] Last Admin: 07/10/18 09:06 Dose: 120 mg Guaifenesin (Robitussin -) 10 ml PO Q8H PRN PRN Reason: COUGH Last Admin: 07/10/18 05:28 Dose: 10 ml Levofloxacin (Levaquin) 750 mg PO DAILY@0600 [facility] Last Admin: 07/10/18 05:25 Dose: 750 mg Losartan Potassium (Cozaar -) 50 mg PO DAILY [facility] Last Admin: 07/10/18 09:06 Dose: 50 mg Methylprednisolone Sodium Succinate (Solu-Medrol -) 20 mg IVPB Q8H-IV [facility] Last Admin: 07/10/18 09:06 Dose: 20 mg Montelukast Sodium (Singulair -) 10 mg PO HS [facility] Last Admin: 07/09/18 21:23 Dose: 10 mg Ranitidine HCl (Zantac -) 150 mg PO DAILY [facility] Last Admin: 07/10/18 09:06 Dose: 150 mg - Objective Vital Signs: Vital Signs Temperature 97.9 F 07/10/18 06:08 Pulse Rate 82 07/10/18 06:08 Respiratory Rate 18 07/10/18 09:00 Blood Pressure 138/77 07/10/18 06:08 O2 Sat by Pulse Oximetry (%) 94 L 07/10/18 09:00 Constitutional: Yes: Well Nourished Eyes: Yes: WNL HENT: Yes: WNL Neck: Yes: WNL, Supple Cardiovascular: Yes: WNL Respiratory: Yes: Cough, On Nasal O2, Rhonchi Gastrointestinal: Yes: Normal Bowel Sounds, Soft Musculoskeletal: Yes: WNL Extremities: Yes: WNL Edema: No Peripheral Pulses WNL: Yes Neurological: Yes: WNL, Alert ...Motor Strength: WNL Labs: CBC, BMP 07/10/18 06:05 07/10/18 06:05 INR, PTT INR 1.23 (0.83-1.09) H 07/02/18 12:39 Assessment/Plan Acute hypoxic resp failur likely from acute bronchospasm with? interstitial lung disease ?hypersensitivity pneumonitis Atypical LLL pneumonia Leucocytosis ?steroid induced HTN Obesity Sleep apnoea PLAN Continue IV steroid tapering dose Bronchodialators Continue antibiotics PULmonary cardiology and ID f/uConsult Monitor Labs
--- NOTE | 2018-07-10 11:50 | PN ---
Progress Note, Physician Chief Complaint: Events noted Not in distress History of Present Illness: Patient was seen and examined. Awake and alert. Chart was reviewed Denies chest pain, SOB or palpitations Intermittent cough but improved - Current Medication List Current Medications: Active Medications Acetaminophen (Tylenol -) 650 mg PO HS PRN PRN Reason: PAIN 1-3 Last Admin: 07/06/18 23:23 Dose: 650 mg Diltiazem HCl (Cardizem Cd -) 120 mg PO DAILY [facility] Last Admin: 07/10/18 09:06 Dose: 120 mg Guaifenesin (Robitussin -) 10 ml PO Q8H PRN PRN Reason: COUGH Last Admin: 07/10/18 05:28 Dose: 10 ml Levofloxacin (Levaquin) 750 mg PO DAILY@0600 [facility] Last Admin: 07/10/18 05:25 Dose: 750 mg Losartan Potassium (Cozaar -) 50 mg PO DAILY [facility] Last Admin: 07/10/18 09:06 Dose: 50 mg Methylprednisolone Sodium Succinate (Solu-Medrol -) 20 mg IVPB Q8H-IV [facility] Last Admin: 07/10/18 09:06 Dose: 20 mg Montelukast Sodium (Singulair -) 10 mg PO HS [facility] Last Admin: 07/09/18 21:23 Dose: 10 mg Ranitidine HCl (Zantac -) 150 mg PO DAILY [facility] Last Admin: 07/10/18 09:06 Dose: 150 mg - Objective Vital Signs: Vital Signs Temperature 97.6 F 07/10/18 10:00 Pulse Rate 83 07/10/18 10:00 Respiratory Rate 18 07/10/18 10:00 Blood Pressure 116/60 07/10/18 10:00 O2 Sat by Pulse Oximetry (%) 94 L 07/10/18 09:00 HENT: Yes: Atraumatic Neck: Yes: Supple Cardiovascular: Yes: Regular Rate and Rhythm, S1, S2 Respiratory: Yes: CTA Bilaterally Gastrointestinal: Yes: Normal Bowel Sounds, Soft. No: Tenderness Edema: No Labs: CBC, BMP 07/10/18 06:05 07/10/18 06:05 Problem List - Problems (1) Acute hypoxemic respiratory failure Code(s): J96.01 - ACUTE RESPIRATORY FAILURE WITH HYPOXIA (2) Pneumonia Code(s): J18.9 - PNEUMONIA, UNSPECIFIED ORGANISM Qualifiers: Pneumonia type: due to unspecified organism Laterality: left Lung location: lower lobe of lung Qualified Code(s): J18.1 - Lobar pneumonia, unspecified organism (3) Reactive airway disease Code(s): J45.909 - UNSPECIFIED ASTHMA, UNCOMPLICATED (4) Sleep apnea Code(s): G47.30 - SLEEP APNEA, UNSPECIFIED Assessment/Plan 1. Acute Hypoxic Respiratory Failure / acute bronchitis with community acquired LLL pneumonia 2. Diastolic LV dysfunction with clinical class 0 NYHA classification LV failure 3. Obstructive sleep apnea poor compliance 4. HTN/HCVD 5. Morbid obesity 6. Sinus tachycardia PLAN: 1. Continue Cardizem CD 120 mg QD and Losartan 50 mg QD 2. Bronchodilators, O2, BIPAP as needed. Continue oral steroid taper with GI protection 3. Antibiotics 4. PFTs as outpatient 5. DVT and GI prophylaxis Further plans are to follow Robin Woodruff MD
--- NOTE | 2018-07-10 12:38 | PN ---
Progress Note (short form) - Note Progress Note: PULMONARY VSS/AFEBRILE Constitutional: Yes: Calm, Obese Eyes: Yes: WNL HENT: Yes: WNL Neck: Yes: WNL Cardiovascular: Yes: Regular Rate and Rhythm, S1, S2 Respiratory: Yes: Diminished Gastrointestinal: Yes: Normal Bowel Sounds, Soft Extremities: Yes: WNL Edema: No Labs: REVIEWED MEDS/NOTES REVIEWED Problem List (1) Sleep apnea Code(s): G47.30 - SLEEP APNEA, UNSPECIFIED (2) Pneumonia Code(s): J18.9 - PNEUMONIA, UNSPECIFIED ORGANISM Qualifiers: Pneumonia type: due to unspecified organism Laterality: left Lung location: lower lobe of lung Qualified Code(s): J18.1 - Lobar pneumonia, unspecified organism (3) Reactive airway disease Code(s): J45.909 - UNSPECIFIED ASTHMA, UNCOMPLICATED (4) Acute hypoxemic respiratory failure Code(s): J96.01 - ACUTE RESPIRATORY FAILURE WITH HYPOXIA A/P Acute Hypoxic Respiratory Failure improving Pneumonia Acute Bronchospasm Obstructive Sleep Apnea HTN - continue antibiotics - continue medrol taper - inhaled bronchodilators - taper o2 to keep SpO2 >90% - BiPAP as needed - DVT prophylaxis - will need outpt f/u of chest imaging - sleep studies outpatient - discharge planned for tomorrow Paul COLON MD
[2018-07-10] MEDS: MONTELUKAST NA 10 MG TABLET PO SCH (21:43)
[2018-07-11] MEDS: methylPREDNISolone NA SUCC 40 MG/1 ML VIAL IVPB SCH ×2 (01:22→09:44)
[2018-07-11] MEDS ORDERED: PT OWN MED DRAWER 7, Y5N ONE (05:46)
[2018-07-11] MEDS: levoFLOXacin 750 MG TABLET PO SCH (05:48)
[2018-07-11] MEDS ORDERED: FLU VACCINE QUAD 60 MCG/0.5 ML (MDV 18-19) IM ONE (09:00)
[2018-07-11] MEDS: RANITIDINE HCL 150 MG TABLET (FP) PO SCH (09:43)
[2018-07-11] MEDS: LOSARTAN POTASSIUM 50 MG TABLET (FP) PO SCH (09:44)
--- NOTE | 2018-07-11 10:50 | PN ---
Progress Note, Physician Chief Complaint: Events noted Not in distress History of Present Illness: Patient was seen and examined. Awake and alert. Chart was reviewed Denies chest pain, SOB or palpitations Wanting to go home - Current Medication List Current Medications: Active Medications Acetaminophen (Tylenol -) 650 mg PO HS PRN PRN Reason: PAIN 1-3 Last Admin: 07/06/18 23:23 Dose: 650 mg Diltiazem HCl (Cardizem Cd -) 120 mg PO DAILY [facility] Last Admin: 07/11/18 09:44 Dose: 120 mg Guaifenesin (Robitussin -) 10 ml PO Q8H PRN PRN Reason: COUGH Last Admin: 07/10/18 21:43 Dose: 10 ml Levofloxacin (Levaquin) 750 mg PO DAILY@0600 [facility] Last Admin: 07/11/18 05:48 Dose: 750 mg Losartan Potassium (Cozaar -) 50 mg PO DAILY [facility] Last Admin: 07/11/18 09:44 Dose: 50 mg Methylprednisolone Sodium Succinate (Solu-Medrol -) 20 mg IVPB Q8H-IV [facility] Last Admin: 07/11/18 09:44 Dose: 20 mg Montelukast Sodium (Singulair -) 10 mg PO HS [facility] Last Admin: 07/10/18 21:43 Dose: 10 mg Ranitidine HCl (Zantac -) 150 mg PO DAILY [facility] Last Admin: 07/11/18 09:43 Dose: 150 mg - Objective Vital Signs: Vital Signs Temperature 97.5 F L 07/11/18 10:00 Pulse Rate 66 07/11/18 10:00 Respiratory Rate 20 07/11/18 10:00 Blood Pressure 131/74 07/11/18 10:00 O2 Sat by Pulse Oximetry (%) 95 07/11/18 09:00 Eyes: Yes: PERRL HENT: Yes: Atraumatic Neck: Yes: Supple Cardiovascular: Yes: Regular Rate and Rhythm, S1, S2 Respiratory: Yes: CTA Bilaterally Gastrointestinal: Yes: Normal Bowel Sounds, Soft. No: Tenderness Edema: No Additional Findings/Remarks: - Review of Systems Constitutional: denies: Chills, Fever Cardiovascular: denies: Chest Pain, Shortness of Breath. denies: Palpitations Respiratory: denies: Cough, Orthopnea, SOB, SOB on Exertion. denies: Hemoptysis , PND Gastrointestinal: denies: Abdominal Pain, Constipation, Melena, Nausea, Rectal Bleeding, Vomiting Genitourinary: denies: Dysuria, Hematuria Neurological: denies: Dizziness, Headache, Seizure, Syncope Labs: CBC, BMP 07/10/18 06:05 07/10/18 06:05 Problem List - Problems (1) Acute hypoxemic respiratory failure Code(s): J96.01 - ACUTE RESPIRATORY FAILURE WITH HYPOXIA (2) Pneumonia Code(s): J18.9 - PNEUMONIA, UNSPECIFIED ORGANISM Qualifiers: Pneumonia type: due to unspecified organism Laterality: left Lung location: lower lobe of lung Qualified Code(s): J18.1 - Lobar pneumonia, unspecified organism (3) Reactive airway disease Code(s): J45.909 - UNSPECIFIED ASTHMA, UNCOMPLICATED (4) Sleep apnea Code(s): G47.30 - SLEEP APNEA, UNSPECIFIED Assessment/Plan 1. Acute Hypoxic Respiratory Failure / acute bronchitis with community acquired LLL pneumonia 2. Diastolic LV dysfunction with clinical class 0 NYHA classification LV failure 3. Obstructive sleep apnea poor compliance 4. HTN/HCVD 5. Morbid obesity PLAN: 1. Continue Cardizem CD 120 mg QD and Losartan 50 mg QD 2. Bronchodilators, O2, BIPAP as needed. Taper IV Solumedrol and consider oral steroid with GI protection 3. Antibiotics course 4. PFTs as outpatient. Sleep study as outpatient 5. DVT and GI prophylaxis Further plans are to follow. May discharge home cardiac standpoint. Robin Woodruff MD
--- NOTE | 2018-07-11 14:33 | PN ---
Progress Note (short form) - Note Progress Note: PULMONARY VSS/AFEBRILE Constitutional: Yes: Calm, Obese Eyes: Yes: WNL HENT: Yes: WNL Neck: Yes: WNL Cardiovascular: Yes: Regular Rate and Rhythm, S1, S2 Respiratory: Yes: Diminished Gastrointestinal: Yes: Normal Bowel Sounds, Soft Extremities: Yes: WNL Edema: No Labs: REVIEWED MEDS/NOTES REVIEWED Problem List (1) Sleep apnea Code(s): G47.30 - SLEEP APNEA, UNSPECIFIED (2) Pneumonia Code(s): J18.9 - PNEUMONIA, UNSPECIFIED ORGANISM Qualifiers: Pneumonia type: due to unspecified organism Laterality: left Lung location: lower lobe of lung Qualified Code(s): J18.1 - Lobar pneumonia, unspecified organism (3) Reactive airway disease Code(s): J45.909 - UNSPECIFIED ASTHMA, UNCOMPLICATED (4) Acute hypoxemic respiratory failure Code(s): J96.01 - ACUTE RESPIRATORY FAILURE WITH HYPOXIA A/P Acute Hypoxic Respiratory Failure improved Pneumonia now on oral abs Acute Bronchospasm Obstructive Sleep Apnea HTN - continue antibiotics as outpatient - medrol d/jimi prednisone begun - inhaled bronchodilators - BiPAP as needed - DVT prophylaxis - will need outpt f/u of chest imaging - sleep studies outpatient - no objection to continue treatment as an outpatient Paul COLON MD
[2018-07-11 14:36] VITALS: BP 119/60; PULSE 86; TEMP 98
[2018-07-11] MEDS ORDERED: predniSONE 20 MG TABLET (UD) PO SCH (14:45)
--- NOTE | 2018-07-11 16:16 | PN ---
Progress Note, Physician Chief Complaint: Pt ambulating without Oxygen,pt feels better afebrile feels better SOB improved Blood cul negative LIEgenella antigen negative Echo report noted leucocytosis,?steroid induced D/c home - Current Medication List Current Medications: Active Medications Acetaminophen (Tylenol -) 650 mg PO HS PRN PRN Reason: PAIN 1-3 Last Admin: 07/06/18 23:23 Dose: 650 mg Diltiazem HCl (Cardizem Cd -) 120 mg PO DAILY [facility] Last Admin: 07/11/18 09:44 Dose: 120 mg Guaifenesin (Robitussin -) 10 ml PO Q8H PRN PRN Reason: COUGH Last Admin: 07/10/18 21:43 Dose: 10 ml Levofloxacin (Levaquin) 750 mg PO DAILY@0600 [facility] Last Admin: 07/11/18 05:48 Dose: 750 mg Losartan Potassium (Cozaar -) 50 mg PO DAILY [facility] Last Admin: 07/11/18 09:44 Dose: 50 mg Montelukast Sodium (Singulair -) 10 mg PO HS [facility] Last Admin: 07/10/18 21:43 Dose: 10 mg Prednisone (Deltasone -) 20 mg PO DAILY [facility] Ranitidine HCl (Zantac -) 150 mg PO DAILY [facility] Last Admin: 07/11/18 09:43 Dose: 150 mg - Objective Vital Signs: Vital Signs Temperature 98.0 F 07/11/18 14:00 Pulse Rate 86 07/11/18 14:00 Respiratory Rate 20 07/11/18 14:00 Blood Pressure 119/60 07/11/18 14:00 O2 Sat by Pulse Oximetry (%) 91 L 07/11/18 12:29 Constitutional: Yes: No Distress Eyes: Yes: Conjunctiva Clear HENT: Yes: Atraumatic, Normocephalic Neck: Yes: Supple, Trachea Midline Cardiovascular: Yes: Regular Rate and Rhythm Respiratory: Yes: Regular, Diminished Gastrointestinal: Yes: Normal Bowel Sounds, Soft Musculoskeletal: Yes: WNL Extremities: Yes: WNL Edema: No Peripheral Pulses WNL: Yes Neurological: Yes: WNL, Alert ...Motor Strength: WNL Psychiatric: Yes: WNL, Alert Labs: CBC, BMP 07/10/18 06:05 07/10/18 06:05 INR, PTT INR 1.23 (0.83-1.09) H 07/02/18 12:39 Assessment/Plan Acute hypoxic resp failur likely from acute bronchospasm with? interstitial lung disease ?hypersensitivity pneumonitis Atypical LLL pneumonia Leucocytosis ?steroid induced HTN Obesity Sleep apnoea PLAN D/c home Continue PO prednisone PULmonary f/u monitor CBC F/u with PMD in 3 days
--- NOTE | 2018-07-17 08:44 | DS ---
DATE OF DICTATION: 07/15/2018 HISTORY: The patient is a 37-year-old male with a past medical history of hypertension admitted with shortness of breath and cough. The patient was treated for bronchitis and upper respiratory tract infection with antibiotics for 2 weeks and prednisone also given, but there was no relief, so the patient was evaluated in the ER and admitted for acute hypoxic respiratory failure likely from the bronchospasm with the cough and interstitial lung disease. At the time of admission, the ABG was done. PH 7.43, PCO2 of 38.6, PO2 of 52.9, bicarbonate 25, O2 saturation 85. The CBC shows WBC 19.2, hemoglobin 15.3, hematocrit 43.1, platelets 357, PT 14.5, INR 1.23. Chemistry shows sodium normal, potassium 3.9, BUN 15, creatinine 1.2, sugar 82, ALT 64, CK 514, troponin negative, AST 31. Urine shows protein 1+. Chest x-ray shows prominent hilar with clear lung field. No acute abnormalities seen. EKG done shows sinus tachycardia. Otherwise, normal EKG. CT of chest CT angiogram done, no evidence of pulmonary embolus. Areas of atelectasis and interstitial lung disease most marked within the left lower lobe. The patient was admitted to telemetry. ID consult and Pulmonary consult and Cardiology consult was done. The patient was treated with antibiotics, IV steroid, Singulair, blood pressure medicine, bronchodilator with ceftriaxone sodium and a BiPAP machine in the nighttime and nasal oxygen. Urine tested for Legionella antigen was negative. Sputum Gram stain was normal respiratory debra, and blood culture was negative. Blood pressure medicine administered. The patient was started on losartan and diltiazem. Cardizem CD 120 mg p.o. daily was recommended by Cardiology. The patient was taken like acute hypoxic respiratory failure and atypical pneumonia and hypertension and oxygen. Echocardiogram was done. Shows normal LV size and function. Ejection fraction 65%-70%, normal RV size and function with trace MR. No pulmonary hypertension. Patient was stable during the hospitalization. Daily CBC was monitored. Recommended to do the sleep study as an outpatient. Patient discharged home in stable condition on oral levofloxacin, bronchodilators, tapering dose of steroid, antihypertensive medication in a stable condition. Recommended to follow with Pulmonary and Cardiology and primary as an outpatient. MEDICATIONS: Patient discharged to home on Cardizem CD 120 mg, losartan 50 mg daily, Singulair, tapered dose of steroid, and bronchodilator. DISPOSITION: Patient discharged in stable condition. ALEX FARRIS M.D. [id number]
== END 2018-07-11 18:04 | disposition home or self-care (01) | DRG 193 ==
LOC: JER 11:07 → JERBED 14:34 → J4S 16:37
PROVIDERS: ADMIT Family Medicine; ATTEND Family Medicine
PROC: 5A09557 Assistance with Respiratory Ventilation, Greater than 96 Consecutive Hours, Continuous Positive Airway Pressure (ICD-10-PCS; principal; 2018-07-02)
DX: J18.9 Pneumonia, unspecified organism (principal); J96.01 Acute respiratory failure with hypoxia; G47.30 Sleep apnea, unspecified; Z68.39 Body mass index [BMI] 39.0-39.9, adult; D72.829 Elevated white blood cell count, unspecified; J20.9 Acute bronchitis, unspecified; E66.01 Morbid (severe) obesity due to excess calories; I11.9 Hypertensive heart disease without heart failure; R00.0 Tachycardia, unspecified
CPT/HCPCS: 36415; 36600; 71045-TC-FY; 71275-TC; 80053; 81003; 81015; 82550; 82553; 82803; 82962; 83605; 83735; 83880; 84100; 84484; 85025; 85610; 87040; 87070; 87205; 87804; 87899; 90688; 93005; 93010; 93306-TC; 94640; 94660; 94761; 99284-25; G0008; J1644